=== PATIENT | male | born 1950 | race Caucasian/White ===

== ENCOUNTER 2024-08-24 11:40 | Inpatient (IN) | payer MEDICARE, OTHER, SELFPAY ==
[2024-08-24] VITALS (36 sets, daily range): BP systolic 80–117; BP diastolic 50–84; PULSE 75–144; RESP 13–30; TEMP 36.7–39.1; O2SAT 91–98; BMI 29.1
--- NOTE | 2024-08-24 11:54 | XR_ITS ---
WS: [id number] XR chest 1V portable [id number] REASON FOR EXAM: Weakness FINDINGS: No comparison examination available. Cardiac device over the left chest with trans left subclavian vein leads to the right atrium and right ventricular apex. Significant cardiomegaly. Significant central pulmonary venous congestion. There is increased density over the lower right hemithorax. There is accentuation of the minor fissure. These findings could be indicative of a right pleural effusion. No definite pulmonary edema. Significant degenerative spondylosis in the thoracic spine. XR/XR chest 1V portable [id number] IMPRESSION: Significant cardiomegaly and central pulmonary venous congestion. Possible righ t pleural effusion.
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
[2024-08-24 12:31] LABS: Hematocrit 34.5 % (37-53); Hemoglobin 10.80 g/dL (11.27-16.99); Mean Corpuscular HGB Conc 31.3 g/dL (30-55); Mean Corpuscular Hemoglobin 26.7 pg (27-33); Mean Corpuscular Volume 85.4 fl (82-101); Nucleated Red Blood Cells % 0 %; Platelet Count 306 10^3/cmm (157-399); Red Blood Count 4.04 10^6/uL (3.85-5.65); White Blood Count 19.13 10^3/uL (3.29-11.43)
[2024-08-24] MEDS: acetaminophen 1,000 MG/100 ML PIGGYBACK 400 MG IV (12:33)
[2024-08-24 12:40] LABS: INR 1.22 (0.8-1.2); Prothrombin Time 16.20 SECONDS (12.1-14.9)
[2024-08-24 12:41] LABS: Partial Thromboplastin Time 26.4 SECONDS (23.9-36.7)
[2024-08-24 12:45] LABS: Lactic Sepsis W/Reflex 1.5 mmol/L (0.5-2.2)
[2024-08-24 12:46] LABS: Troponin(5th) Baseline 97 ng/L (0-15)
--- NOTE | 2024-08-24 12:48 | PC.PHAR ---
Phoned [facility] in [place] [phone] and spoke wit pts nurse Amy. She said they gave pm medications on 08/22/24 and discharged pt to home on 08/23/24 at 7am without morning medications. Note says Discharge to home with medications on 08/23/24 Home Health to evaluate and tx for RN, PT, and OT Discharge per facility recommendation.
[2024-08-24 13:01] LABS: Alanine Aminotransferase 13 U/L (0-41); Albumin Level 2.5 g/dL (3.5-5.2); Alkaline Phosphatase 172 U/L (40-130); Aspartate Amino Transferase 18 U/L (0-40); Blood Urea Nitrogen 41 mg/dL (8-23); Calcium 8.4 mg/dL (8.5-10.5); Carbon Dioxide 18 mmol/L (22-29); Chloride 101 mmol/L (98-107); Globulin 3.2 g/dL (1.3-4.6); Glucose 121 mg/dL (65-115); NT Pro B Type Natriuretic Pept 22816 pg/mL (0-450); Osmolality Calculated 295 mOsm/kg (285-295); Sodium 137 mmol/L (136-145); Total Protein 5.7 g/dL (6.6-8.7)
[2024-08-24 13:04] LABS: Anion Gap 22.4 (5-19); Potassium 4.4 mmol/L (3.5-5.1)
--- NOTE | 2024-08-24 13:06 | CT_ITS ---
WS: [id number] CT CHEST, ABDOMEN, AND PELVIS TECHNIQUE: Noncontrast CT of the chest, abdomen, and pelvis with coronal and sagittal reformatted images. CLINICAL INFORMATION: sepsis. COMPARISON: None. DLP: 1201.[address] scans at [facility] use at least one of these dose optimization techniques: automated exposure control; mA and/or kV adjustment per patient size (includes targeted exams where dose is matched to clinical indication); or iterative reconstruction. CT CHEST: Cardiomegaly. Small to moderate RIGHT pleural effusion with compressive atelectasis RIGHT lower lobe. Shallow inspiration. Cardiac pacer. Normal caliber thoracic aorta. Aortic calcification. Coronary calcification. A few small calcified thyroid nodules. Trace pericardial fluid. Postoperative plate and screw fixation RIGHT humerus CT ABDOMEN AND PELVIS: Hepatomegaly. Cholelithiasis. No gallbladder wall thickening or pericholecystic fluid. Normal noncontrast spleen. Fatty atrophy of the pancreas. Adrenal glands are normal. Mild dilatation of the renal pelvis bilaterally with mild bilateral ureterectasis. Recommend correlation for ascending UTI/pyelonephritis. Diffuse bladder wall thickening. Bladder is decompressed with Ordaz catheter. Recommend correlation for cystitis. Adrenal glands are normal. Diffuse body wall anasarca. Diverticulosis. No evidence of acute diverticulitis. Normal appendix. Tiny fat-containing umbilical hernia. Moderate thoracic kyphosis. Hypertrophic changes thoracic spine CT/[place] [id number] IMPRESSION: 1. Small to moderate RIGHT pleural effusion with compressive atelectasis RIGHT lower lobe. 2. Cardiomegaly. 3. Diffuse body wall anasarca. 4. Ordaz catheter with diffuse bladder wall thickening. Bladder is decompresse d. Correlation for UTI cystitis. 5. Mild bilateral ureterectasis with mild pelvicaliectasis. Recommend correlat ion for UTI/pyelonephritis. 6. Cholelithiasis.
[2024-08-24] MEDS: linezolid premix 600 MG/300 ML PREMIX 300 MG IV (13:10)
[2024-08-24 13:16] LABS: Glucose Urine UA Trace (Normal); Nitrate Urine Negative (Negative); Specific Gravity, Urine 1.012 (1.005-1.030)
--- NOTE | 2024-08-24 13:54 | ECG_ITS ---
[employer] Test Date: 2024-08-24 Pat Name: Nolan Khan Department: Room: Gender: Male Process Control Tech: : 1950 Requested By: Sherrell Calderon Order Number: [id number] Ash MD: Jose Antonio Perkins M.D. Measurements Intervals [place] Rate: 79 P: 0 LA: 0 QRS: -79 QRSD: 155 T: 121 QT: 441 QTc: 507 Interpretive Statements ATRIAL FIBRILLATION RIGHT BUNDLE BRANCH BLOCK [120+ ms QRS DURATION, UPRIGHT V1, 40+ ms S IN I/aVL/V4/V5/V6] POSSIBLE ANTERIOR MYOCARDIAL INFARCTION , PROBABLY OLD [30 ms Q WAVE IN V3/V4, OR R < 0.2 mV IN V4] INFERIOR MYOCARDIAL INFARCTION , OF INDETERMINATE AGE [40+ ms Q WAVE AND/OR ST/T ABNORMALITY IN II/aVF] No previous ECG available for comparison Electronically Signed On 08-25-2024 09:30:31 CDT by Jose Antonio Perkins M.D. [email or web address]
[2024-08-24] MEDS: norepinephrine 4 MG/250 ML BAG 30 MG IV (14:38)
[2024-08-24 14:47] LABS: Troponin 5 2HR 96.99 ng/L (0-15)
[2024-08-24 14:48] LABS: Troponin 5 2HR Delta -0.01 ABS# (0-10)
--- NOTE | 2024-08-24 16:04 | USCV_ITS ---
Nolan Khan Age: 74 Gender: M : 1950 Exam Date: 08/24/2024 21:05 Ordering Phys: Pam Lobo MD Technologist: MING Exam Location: [facility] – [place] Indication: CHF, DM2, elevated troponin, RIGHT pleural effusion, patient is unresponsive in ICU-2 BP: 86 / 64 HR: 86 Rhythm: Paced rhythm with Atrial fibrillation Technical Quality: Adequate MEASUREMENTS (Male / Female) Normal Values 2D ECHO LV Diastolic Diameter PLAX 5.3 cm 4.2 - 5.9 / 3.9 - 5.3 cm IVS Diastolic Thickness 1.7 cm 0.6 - 1.0 / 0.6 - 0.9 cm IVS Systolic Thickness 1.8 cm LVPW Diastolic Thickness 1.2 cm 0.6 - 1.0 / 0.6 - 0.9 cm LVPW Systolic Thickness 1.5 cm LVOT Diameter 2.5 cm LV Ejection Fraction 2D Teich 26.6 % LV Ejection Fraction MOD 4C 28.7 % LV Ejection Fraction MOD 2C 27.6 % LV Ejection Fraction 2C AL 28.4 % LA Diameter 3.5 cm Aorta at Sinotubular Diameter 4.0 cm IVC Diameter 2.1 cm M-MODE LA Ao Ratio MM 1.3 AV Cusp Separation MM 2.1 cm DOPPLER AV Peak Velocity 139.0 cm/s LVOT Peak Velocity 81.0 cm/s AV Area Cont Eq vti 3.3 cm squared AV Area Cont Eq pk 2.7 cm squared MV Peak Velocity 94.0 cm/s MV Area PHT 5.5 cm squared Mitral E to A Ratio 69.0 TV Peak Velocity 325.0 cm/s TR Peak Velocity 328.0 cm/s TR Peak Gradient 43.0 mmHg TV Peak E Velocity 39.0 cm/s PV Peak Velocity 75.0 cm/s FINDINGS Left Ventricle Moderately increased left ventricular cavity size. Severely decreased left ventricular systolic function. Global left ventricular hypokinesis. Left ventricular ejection fraction is estimated at 25 %. There appeared to be severe global hypokinesis with regional anterior and septal wall akinesis.Grade II/IV diastolic dysfunction, moderately elevated filling pressures. Right Ventricle Moderate pulmonary hypertension, RVSP 64 mmHg. Catheter/pacemaker wire visualized in the right ventricle. Right Atrium Moderately increased right atrial size. Left Atrium Moderately increased left atrial size. Mitral Valve Structurally normal mitral valve without significant stenosis or prolapse. There is no mitral regurgitation. Aortic Valve Moderate aortic valve calcification. No aortic valve stenosis. Mild aortic valve regurgitation. Tricuspid Valve Severe tricuspid valve regurgitation. Pulmonic Valve Structurally normal pulmonic valve without significant stenosis. There is no pulmonic regurgitation. Pericardium Normal pericardium without effusion. Aorta Normal ascending aorta dimension. IVC Dilated IVC with decreased respiratory variation. CONCLUSIONS Moderately increased left ventricular cavity size. Severely decreased left ventricular systolic function. Global left ventricular hypokinesis. Left ventricular ejection fraction is estimated at 25 %. There appeared to be severe global hypokinesis with regional anterior and septal wall akinesis.Grade II/IV diastolic dysfunction, moderately elevated filling pressures. Moderate pulmonary hypertension, RVSP 64 mmHg. Catheter/pacemaker wire visualized in the right ventricle. Structurally normal mitral valve without significant stenosis or prolapse. There is no mitral regurgitation. Severe tricuspid valve regurgitation. There is no pericardial effusion. Right atrial pressure is around 25 mm of mercury. Renée Flores MD (Electronically Signed) Final Date: 26 August 2024 13:31 S
--- NOTE | 2024-08-24 16:41 | PM.HP ---
Providers/Chief Complaint Admitting Physician: Pam Lobo MD Chief Complaint: CHF,Weakness, Fatigue History of Present Illness Nolan Khan is a 74 year old male with type 2 diabetes mellitus, chronic HFrEF (30%), BPH, and GERD. He presented to the ED with generalized weakness. He reportedly was discharged from his alf either yesterday or 3 days ago. He has been out on his porch and his neighbors have been trying to take care of him. He is a former physician and . Both lower extremities were bandaged and he has drainage from his wounds. His last echocardiogram was 5 years ago. His WBC was elevated but lactic acid was normal. His BNP and troponin were elevated. UA was positive for UTI. Indwelling Ordaz catheter was placed in the ED. CT chest, abdomen, and pelvis showed small to moderate right pleural effusion with compressive atelectasis of the RLL, cardiomegaly, diffuse and a soccer, diffuse bladder wall thickening, and bilateral ureterectasis with mild pelvicaliectasis. He was febrile, tachycardic, and hypotensive in the ED. He received a total of 2 L normal saline bolus in the ED. He remained hypotensive and was started on norepinephrine. He is saturating well on room air. He was given linezolid and meropenem in the ED. Review of Systems General: Reports: 10 or more systems reviewed and unremarkable except in HPI and below Medications/Allergies Home Medications ?Medication ?Instructions ?Recorded ?Confirmed ?Last Taken ?Type Lactobacillus acidophilus 1,000 mmu cells PO DAILY 08/24/24 08/24/24 08/22/24 History (Acidophilus capsule) acetaminophen 500 mg tablet 1,000 mg PO TID pain 08/24/24 08/24/24 Unknown History aspirin 81 mg tablet,delayed 81 mg PO DAILY 08/24/24 08/24/24 08/22/24 History release (Ecotrin Low Strength) bethanechol chloride 25 mg tablet 25 mg PO QID 08/24/24 08/24/24 08/22/24 History buspirone 5 mg tablet 5 mg PO BID 08/24/24 08/24/24 08/22/24 History empagliflozin 10 mg tablet 10 mg PO QAM 08/24/24 08/24/24 08/22/24 History furosemide 20 mg tablet (Lasix) 60 mg PO BID 08/24/24 08/24/24 08/22/24 History methocarbamol 500 mg tablet 500 mg PO Q6H PRN Spasms 08/24/24 08/24/24 Unknown History midodrine 5 mg tablet 5 mg PO TID 08/24/24 08/24/24 08/22/24 History multivitamin with minerals 1 tab PO QAM 08/24/24 08/24/24 08/22/24 History naproxen sodium 220 mg tablet 220 mg PO BID PRN Pain 08/24/24 08/24/24 Unknown History pantoprazole 40 mg tablet,delayed 40 mg PO QAM 08/24/24 08/24/24 08/22/24 History release (Protonix) potassium chloride 20 mEq 20 meq PO BID 08/24/24 08/24/24 08/22/24 History tablet,extended release tamsulosin 0.4 mg capsule 0.4 mg PO QPM 08/24/24 08/24/24 08/22/24 History tramadol 50 mg tablet 50 mg PO Q6H PRN Pain 08/24/24 08/24/24 Unknown History Allergies Allergy/AdvReac Type Severity Reaction Status Date / Time Calcium Channel Blocking Allergy Unknown Verified 08/24/24 12:48 Agent Dilt phenytoin (From Dilantin) Allergy Unknown Verified 08/24/24 12:48 PFSH Acute PFSH: Medical History (Updated 08/24/24 @ 17:06 by Pam Lobo MD) Congestive heart failure (Unknown) Type 2 diabetes mellitus BPH (benign prostatic hyperplasia) Vitals/I&O/Wt Last Vital Signs Temp 100.1 F H 08/24/24 15:30 Pulse 105 H 08/24/24 15:31 Resp 16 08/24/24 14:55 BP 117/84 08/24/24 15:31 Pulse Ox 94 08/24/24 15:31 O2 Del Method Room Air 08/24/24 16:00 08/24/24 08/24/24 08/24/24 06:59 14:59 22:59 Intake Total 900 / 900 Balance 900 / 900 Weight last 48 hrs Weight 103 kg Weight 112.491 kg Physical Exam Narrative: GEN: Alert but poor appearance, anasarca HEENT, normocephalic, atraumatic, PERRLA Neck: Supple Cardio: Tachycardic, regular rhythm, S1-S2, no murmurs noted Pulmonary: Diminished breath sounds but clear Abdomen: Soft, nontender, nondistended, normal bowel sounds : No CVA tenderness, Ordaz placed in the ED Extremity: Bilateral legs and feet bandaged but noted to have venous stasis ulcers both legs, multiple toes amputated Extremity, wounds both feet with purulent drainage Data 08/24/24 12:23 08/24/24 12:23 Micro: Microbiology 08/24/24 12:56 Blood Culture - Preliminary Blood SPECIMEN COLLECTED 08/24/24 12:36 Blood Culture - Preliminary Blood SPECIMEN COLLECTED A&P Assessment and plan (1) Septic shock: Septic shock secondary to complicated UTI and infected diabetic foot ulcers Present on admission with fever, tachycardia, hypotension, leukocytosis ? Received 2 L normal saline bolus in the ED ? Started on IV pressors ? Continue linezolid and meropenem ? Follow-up blood and urine cultures (2) Acute UTI: Acute complicated UTI ? Urinary retention and Ordaz catheter placed in the ED ? Has since gross developed hematuria but initial UA did not show any significant hematuria, likely trauma from Ordaz insertion ? No urinary obstruction noted on CT ? Continue antibiotics ? Follow-up urine cultures (3) Diabetic foot ulcers: Podiatry consulted Wound care also consulted ? Continue linezolid and meropenem (4) Venous stasis ulcers of both lower extremities: Suspect he has superimposed infection Wound care consulted (5) Congestive heart failure: Acute on chronic HFrEF ? Reported LVEF 20% 5 years ago ? BNP elevated, noted to have diffuse anasarca and right pleural effusion on imaging ? Will hold off on IV diuretics given shock ? No IV fluids ? Follow-up echocardiogram ? Telemetry monitoring ? Strict I's and O's and daily weights (6) Type 2 diabetes mellitus: Holding Jardiance Sliding scale insulin Follow-up A1c (7) BPH (benign prostatic hyperplasia): Tamsulosin (8) Anasarca: Plan Continue IV antibiotics and IV pressors as above GI prophylaxis: Protonix VTE prophylaxis: Lovenox PDMP PDMP Reviewed: Not Reviewed Attestations Medical Necessity Statement*: Patient requires ICU hospitalization for IV antibiotics, IV pressors, telemetry monitoring, wound care, podiatry Critical Care Time: Total critical care time spent equals 45 minutes. Coding Level of Care Code Acute Code for Chg Fwd Diagnoses Septic shock A41.9; R65.21 Acute UTI N39.0 Diabetic foot ulcers E11.621; L97.509 Venous stasis ulcers of both lower extremities I83.019; I83.029; L97.919; L97.929 Congestive heart failure I50.9 Type 2 diabetes mellitus E11.9 BPH (benign prostatic hyperplasia) N40.0 Anasarca R60.1
--- NOTE | 2024-08-24 16:45 | XRR_ITS ---
PROCEDURE INFORMATION: Exam: XR Left Foot Exam date and time: 08/24/2024 4:56 PM Age: 74 years old Clinical indication: Other: Diabetic ulcer TECHNIQUE: Imaging protocol: Radiologic exam of the left foot. Views: 3 or more views. COMPARISON: No relevant prior studies available. FINDINGS: Bones/joints: Amputation of the 2nd digit of the level of the proximal phalanx. Mild scattered degenerative changes. No acute fracture. No dislocation. Posterior calcaneal enthesophytes. No definite osseous erosions or cortical irregularity. Soft tissues: Mild soft tissue swelling along the dorsum of the foot. Soft tissue swelling extends into the toes. XR/XR foot LT min 3V* [id number] IMPRESSION: 1. No definite radiographic evidence of osteomyelitis. 2. Soft tissue swelling along the forefoot extending into the toes. Correlate for underlying infection.
--- NOTE | 2024-08-24 16:45 | XRR_ITS ---
PROCEDURE INFORMATION: Exam: XR Right Foot Exam date and time: 08/24/2024 4:51 PM Age: 74 years old Clinical indication: Other: Diabetic ulcer TECHNIQUE: Imaging protocol: Radiologic exam of the right foot. Views: 3 or more views. COMPARISON: No relevant prior studies available. FINDINGS: Bones/joints: Amputation of the 1st digit of the level of the metatarsophalangeal joint. Limitation of the 4th digit of the base of the proximal phalanx. Mild scattered degenerative changes. Diffuse osseous demineralization. No acute fracture or dislocation. Posterior and plantar calcaneal enthesophytes. Small focus of cortical irregularity along the distal aspect of the 1st metatarsal, best appreciated on the lateral view. Soft tissues: Soft tissue swelling most pronounced along the medial aspect of the forefoot along the amputation margin. XR/XR foot RT min 3V* [id number] IMPRESSION: Soft tissue swelling most pronounced along the medial aspect of the forefoot along the amputation margin. Correlate for infection. Underlying osteomyelitis of the distal 1st metatarsal not entirely excluded. This could be further assessed with MRI if warranted.
--- NOTE | 2024-08-24 17:09 | PC.NURSE ---
Patient arrived from the ER with hematuria in the Ordaz catheter. Dr. Lau was notified and she ordered to keep watching the hematuria and possible CBI may be needed if the urine does not clear up.
--- NOTE | 2024-08-24 17:24 | PM.CONSULT ---
Providers/Reason For Consult Consulting Physician/Specialty*: Annita Cade.P.M./podiatry Reason for Consult*: Bilateral foot wounds Attending Physician: Pam Lobo MD History of Present Illness History of Present Illness Patient is a 74-year-old male who presented to the emergency department on 08/24/24 via EMS with a chief complaint of generalized weakness. Per patient and emergency physician documentation, the patient was recently [facility] from a prison and was dropped off at his home without adequate support. Neighbors attempted to care for him but were unable to manage due to the patient's increasing weakness. EMS was called, and the patient was transported to the emergency department for evaluation. Workup revealed a urinary tract infection with associated sepsis. He was also noted to have bilateral lower extremity edema, venous stasis changes, and wounds on both feet. Podiatry was consulted for evaluation and further recommendations regarding bilateral foot wounds and overall lower extremity condition. Review of Systems General: Reports: 10 or more systems reviewed and unremarkable except in HPI and below Const: Denies: fever(s), chills, body aches or change in appetite Eyes: Denies: change in vision or blurry vision Card: Denies: chest pain, palpitations or irregular heart rhythm Resp: Denies: dyspnea GI: Denies: abdominal pain, nausea, vomiting or diarrhea Musc: Reports: joint stiffness Skin/Breast: Reports: non-healing lesions and lesions Neuro: Reports: numbness in extremities Medications/Allergies Home Medications ?Medication ?Instructions ?Recorded ?Confirmed ?Last Taken ?Type Lactobacillus acidophilus 1,000 mmu cells PO DAILY 08/24/24 08/24/24 08/22/24 History (Acidophilus capsule) acetaminophen 500 mg tablet 1,000 mg PO TID pain 08/24/24 08/24/24 Unknown History aspirin 81 mg tablet,delayed 81 mg PO DAILY 08/24/24 08/24/24 08/22/24 History release (Ecotrin Low Strength) bethanechol chloride 25 mg tablet 25 mg PO QID 08/24/24 08/24/24 08/22/24 History buspirone 5 mg tablet 5 mg PO BID 08/24/24 08/24/24 08/22/24 History empagliflozin 10 mg tablet 10 mg PO QAM 08/24/24 08/24/24 08/22/24 History furosemide 20 mg tablet (Lasix) 60 mg PO BID 08/24/24 08/24/24 08/22/24 History methocarbamol 500 mg tablet 500 mg PO Q6H PRN Spasms 08/24/24 08/24/24 Unknown History midodrine 5 mg tablet 5 mg PO TID 08/24/24 08/24/24 08/22/24 History multivitamin with minerals 1 tab PO QAM 08/24/24 08/24/24 08/22/24 History naproxen sodium 220 mg tablet 220 mg PO BID PRN Pain 08/24/24 08/24/24 Unknown History pantoprazole 40 mg tablet,delayed 40 mg PO QAM 08/24/24 08/24/24 08/22/24 History release (Protonix) potassium chloride 20 mEq 20 meq PO BID 08/24/24 08/24/24 08/22/24 History tablet,extended release tamsulosin 0.4 mg capsule 0.4 mg PO QPM 08/24/24 08/24/24 08/22/24 History tramadol 50 mg tablet 50 mg PO Q6H PRN Pain 08/24/24 08/24/24 Unknown History Allergies Allergy/AdvReac Type Severity Reaction Status Date / Time Calcium Channel Blocking Allergy Unknown Verified 08/24/24 12:48 Agent Dilt phenytoin (From Dilantin) Allergy Unknown Verified 08/24/24 12:48 Current Medications Generic Name Dose Route Start Last Admin Trade Name Freq PRN Reason Stop Dose Admin Enoxaparin Sodium 40 mg 08/24/24 16:15 08/24/24 16:45 Enoxaparin 40 Mg/0.4 Ml Syringe SUBCUT 40 mg Q24H CARLEEN Administration Norepinephrine Bitartrate 4 mg in 250 mls @ 0 mls/hr 08/24/24 14:30 08/24/24 14:38 Levophed IV 8 mcg/min .Q0M CARLEEN 30 mls/hr Protocol Administration Per Protocol PFSH Acute PFSH: Medical History (Updated 08/24/24 @ 17:06 by Pam Lobo MD) Congestive heart failure (Unknown) Type 2 diabetes mellitus BPH (benign prostatic hyperplasia) Vitals/I&O/Wt Last Vital Signs Temp 100.1 F H 08/24/24 15:30 Pulse 103 H 08/24/24 17:00 Resp 17 08/24/24 17:00 BP 104/67 08/24/24 17:00 Pulse Ox 98 08/24/24 17:00 O2 Del Method Room Air 08/24/24 17:00 08/24/24 08/24/24 08/24/24 06:59 14:59 22:59 Intake Total 900 / 900 Output Total 600 / 600 Balance 900 / 900 -600 / 300 Weight last 48 hrs Weight 227 lb 1.218 oz Weight 248 lb Physical Exam Narrative: BELOW IS A FOCUSED LOWER EXTREMITY EXAM VASCULAR: DP/PT pulses palpable 2/4 with CFT intact, <3 seconds to distal digits. Bilateral lower extremities demonstrate moderate to severe pitting edema consistent with chronic venous insufficiency. DERMATOLOGICAL: Multiple superficial ulcerations noted bilaterally. Left foot with superficial wounds to the dorsal aspect of the third digit and at the dorsal aspect of the second digit amputation site. Dry, stable eschar noted at the distal lateral hallux. Right foot with two superficial ulcerations?one over the second digit and one on the dorsum of the foot. No erythema surrounding the foot wounds. Mild malodor present, attributed to poor hygiene rather than active necrosis or infection. Bilateral lower extremities show weeping venous stasis ulcerations with surrounding cellulitis. Posterior left heel is 100% granular. No active drainage no probe to bone. MUSCULOSKELETAL: Ankle joint and hindfoot range of motion within normal limits bilaterally. No tenderness with palpation of medial, lateral, or anterior ankle bilaterally. No tenderness with palpation of lateral ankle ligaments bilaterally. No pain with palpation of midfoot bilaterally. 5/5 muscle strength in all 4 quadrants of the lower extremity when tested against resistance. No gross musculoskeletal deformities noted. NEUROLOGICAL: Neurological sensation to the affected foot and ankle is present through L4-S1 dermatomes with no hyper/hypoesthesias, negative Tinel or Valleix's sign. IMAGIN-view x-rays of the bilateral feet were taken in the ICU and independently interpreted by me. Right foot reveals radiolucency with cortical resorption at the distal lateral aspect of the first metatarsal, concerning for chronic osteomyelitis. No acute osseous abnormalities or signs of acute osteomyelitis are identified. No surgical intervention warranted at this time. Left foot radiographs appear stable. Data 08/25/24 03:15 08/25/24 03:15 Micro: Microbiology 08/24/24 12:56 Blood Culture - Preliminary Blood SPECIMEN COLLECTED 08/24/24 12:36 Blood Culture - Preliminary Blood SPECIMEN COLLECTED A&P Assessment and plan (1) Diabetic foot ulcers: (2) Type 2 diabetes mellitus: (3) Edema: Plan - Bilateral diabetic foot ulceration -Labs and vitals reviewed -Diet: Per primary team -No plan for surgical intervention by podiatry during this admission -Pain Mgmt: Per primary team -Weight bearing: Weightbearing as tolerated -Dressings: Superficial ulcerations of bilateral toe wound should be painted with povidone iodine twice daily. Left heel wound should be dressed daily consisting of dry sterile dressing/Allevyn pad -Continue current Abx therapy -Trend labs -Discharge plan: To be determined -Podiatry will continue to round on patient daily and provide recommendations Defer management of venous stasis wounds to the wound care team; compression therapy is recommended bilaterally once cellulitis is controlled. There is no evidence of acute foot infection or deep space abscess. Malodor is likely secondary to poor hygiene rather than necrosis or abscess. No surgical intervention is recommended by podiatry at this time. There is no indication that the feet are the source of sepsis. PDMP PDMP Reviewed: Not Reviewed Coding Level of Care Code Acute Code for [facility] Fwd Diagnoses Diabetic foot ulcers E11.621; L97.509 Type 2 diabetes mellitus E11.9 Edema R60.9
--- NOTE | 2024-08-24 17:54 | ECG_ITS ---
[email or web address] [facility] Test Date: 2024-08-24 Pat Name: Nolan Khan Department: Room: ICU02 Gender: Male Support Service Tech: : 1950 Requested By: Sherrell Calderon Order Number: [id number] Nilsa MD: Jose Antonio Perkins M.D. Measurements Intervals [place] Rate: 116 P: 0 [place]: 0 QRS: 256 QRSD: 137 T: 98 QT: 347 QTc: 483 Interpretive Statements ATRIAL FIBRILLATION WITH RAPID VENTRICULAR RESPONSE WITH ABERRANT CONDUCTION OR VENTRICULAR PREMATURE COMPLEXES RIGHT AXIS DEVIATION [QRS AXIS > 100] RIGHT BUNDLE BRANCH BLOCK [120+ ms QRS DURATION, UPRIGHT V1, 40+ ms S IN I/aVL/V4/V5/V6] INFERIOR MYOCARDIAL INFARCTION , POSSIBLY ACUTE [40+ ms Q WAVE AND/OR ST/T ABNORMALITY IN II/aVF] ANTEROSEPTAL MYOCARDIAL INFARCTION , OF INDETERMINATE AGE [40+ ms Q WAVE IN V1-V4] No previous ECG available for comparison Electronically Signed On 08-25-2024 09:31:01 CDT by Jose Antonio Perkins M.D. [id number]
[2024-08-24] MEDS: morphine 4 mg/mL SDV 1 mL IVP (18:05)
--- NOTE | 2024-08-24 18:20 | ECG_ITS ---
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 Measurements Intervals [place] Rate: 147 P: 0 [place]: 0 QRS: 270 QRSD: 165 T: 87 QT: 337 QTc: 528 Interpretive Statements ATRIAL FIBRILLATION WITH RAPID VENTRICULAR RESPONSE WITH ABERRANT CONDUCTION OR VENTRICULAR PREMATURE COMPLEXES RIGHT AXIS DEVIATION [QRS AXIS > 100] RIGHT BUNDLE BRANCH BLOCK [120+ ms QRS DURATION, UPRIGHT V1, 40+ ms S IN I/aVL/V4/V5/V6] POSSIBLE ANTERIOR MYOCARDIAL INFARCTION , OF INDETERMINATE AGE [30 ms Q WAVE IN V3/V4, OR R < 0.2 mV IN V4] Compared to ECG 08/24/2024 14:31:31 Ventricular premature complex(es) now present Aberrant conduction of supraventricular beat(s) now present Right-axis deviation now present Myocardial infarct finding still present Electronically Signed On 08-25-2024 08:53:32 CDT by Jose Antonio Perkins M.D. [id number] [id number]
--- NOTE | 2024-08-24 18:32 | PC.NURSE ---
Patient's heart rate jumped up to 160. EKG was done and it showed patient being in A-fib with RVR. Dr. Lobo was notified and she ordered to give first 5 mg of metoprolo IVP push then if that does not work maybe starting him on an amio drip.
[2024-08-24] MEDS: metoprolol tartrate 1 mg/1 mL SDV 5 mL 5 MG IVP (18:36)
[2024-08-24 18:41] LABS: Troponin 5 6HR 96.12 ng/L (0-15)
[2024-08-24 18:54] LABS: Troponin 5 6HR Delta -0.88 ng/L (0-12)
[2024-08-24] MEDS: meropenem 1,000 mg SDV 1000 MG IVP (20:29)
[2024-08-24 20:31] LABS: Free T4 Free Thyroxine 1.30 ng/dL (0.82-1.77); Thyroid Stimulating Hormone 0.60 uIU/mL (0.27-4.20)
[2024-08-25] VITALS (98 sets, daily range): BP systolic 80–120; BP diastolic 46–85; PULSE 75–141; RESP 13–27; TEMP 36.8–37.6; O2SAT 89–96
[2024-08-25] MEDS: norepinephrine 4 MG/250 ML BAG 30 MG IV ×2 (00:18→09:05)
[2024-08-25] MEDS: linezolid premix 600 MG/300 ML PREMIX 300 MG IV ×3 (00:20→18:30)
[2024-08-25 03:13] LABS: Bacteroides fragilis Not Detected (NOT DETECT); CTX-M Detected (NOT DETECT); Citrobacter Not Detected (NOT DETECT); Cronobacter sakazakii Not Detected (NOT DETECT); Enterobacter non cloacae Not Detected (NOT DETECT); Fusobacterium necrophorum Not Detected (NOT DETECT); Fusobacterium nucleatum Not Detected (NOT DETECT); IMP Resistance Gene Not Detected (NOT DETECT); KPC Resistance Gene Not Detected (NOT DETECT); Klebsiella pneumoniae group Not Detected (NOT DETECT); Morganella morganii Not Detected (NOT DETECT); NDM Resistance Gene Not Detected (NOT DETECT); OXA Resistance Gene Not Detected (NOT DETECT); Pan Candida Not Detected (NOT DETECT); Pan Gram-Positive Not Detected (NOT DETECT); Proteus mirabilis Not Detected (NOT DETECT); Serratia Not Detected (NOT DETECT); Serratia marcescens Not Detected (NOT DETECT); Stenotrophomonas maltophilia Not Detected (NOT DETECT); VIM Resistance Gene Not Detected (NOT DETECT)
[2024-08-25 03:50] LABS: Hematocrit 33.6 % (37-53); Hemoglobin 10.40 g/dL (11.27-16.99); Mean Corpuscular HGB Conc 31.0 g/dL (30-55); Mean Corpuscular Hemoglobin 26.6 pg (27-33); Mean Corpuscular Volume 85.9 fl (82-101); Nucleated Red Blood Cells % 0 %; Platelet Count 315 10^3/cmm (157-399); Red Blood Count 3.91 10^6/uL (3.85-5.65); White Blood Count 23.37 10^3/uL (3.29-11.43)
--- NOTE | 2024-08-25 03:51 | PC.NURSE ---
Blood Culture Preliminary Results Blood culture preliminary results 3/3 bottles positive for gram negative rods, E. Coli, with resistance gene ctx-m. Dr. Smith notified; orders received to discontinue meropenem and zyvox then start 2 g ceftriaxone IV now and Q24H.
[2024-08-25] MEDS: cefTRIAXone 1,000 mg SDV 2000 MG IVP (04:04)
[2024-08-25 04:22] LABS: Magnesium 2.4 mg/dL (1.7-2.3)
[2024-08-25 04:23] LABS: Anion Gap 18.0 (5-19); Blood Urea Nitrogen 40 mg/dL (8-23); Calcium 8.5 mg/dL (8.5-10.5); Carbon Dioxide 22 mmol/L (22-29); Chloride 102 mmol/L (98-107); Creatinine Clr Calc Pharmacy 50.2889; Glucose 133 mg/dL (65-115); Osmolality Calculated 298 mOsm/kg (285-295); Potassium 4.0 mmol/L (3.5-5.1); Sodium 138 mmol/L (136-145)
--- NOTE | 2024-08-25 07:31 | P.PN_ITS ---
Subjective 2 Subjective: He went into A-fib with RVR yesterday evening. His rate was controlled with IV metoprolol. His rate remained controlled overnight. He is still on Levophed. He has pain in his legs and feels generally uncomfortable. Denies any dyspnea at this time. He is on room air. He had gross hematuria after Ordaz insertion yesterday. Hematuria is clearing up. Vitals/I&O/Wt Last Vital Signs Temp 99.1 F 08/25/24 04:00 Pulse 102 H 08/25/24 07:00 Resp 14 08/25/24 07:00 BP 108/60 08/25/24 07:00 Pulse Ox 95 08/25/24 07:00 O2 Del Method Room Air 08/25/24 04:00 08/24/24 08/25/24 08/25/24 22:59 06:59 14:59 Intake Total 250 / 1150 700 / 1850 Output Total 600 / 600 850 / 1450 Balance -350 / 550 -150 / 400 Weight last 48 hrs Weight 101.5 kg Weight 103 kg Weight 112.491 kg Physical Exam 2 Narrative: GEN: Alert but poor appearance, anasarca HEENT, normocephalic, atraumatic, PERRLA Neck: Supple Cardio: Regular rate, irregular rhythm, S1-S2, no murmurs noted Pulmonary: Diminished breath sounds especially in the bases Abdomen: Soft, nontender, nondistended, normal bowel sounds : No CVA tenderness, Ordaz placed in the ED Extremity: Edema of both legs. Status post right great and fourth toe amputations. Status post amputation of the left second toe. Skin: Venous stasis ulcers both extremities with erythema. Superficial ulcer left third toe and stump of amputated left second toe. Ulcer left posterior heel with granular tissue at base. Right foot with superficial ulcer on the right second toe and also in dorsum of the right foot. Urinary Catheter Management: Ordaz: Cath Placed During This Visit: no Reason for Continuing Indwelling Catheter: Accurate Measurement of Urinary Output in Critically Ill Patients Data 08/25/24 03:15 08/25/24 03:15 Micro: Microbiology 08/24/24 12:36 Blood Culture - Preliminary Blood Escherichia coli 08/24/24 12:56 Blood Culture - Preliminary Blood SPECIMEN COLLECTED A&P Assessment and plan (1) Shock: Likely component of septic and cardiogenic shock ? Hypervolemic on exam ? Continues to require Levophed ? Started Lasix today as well ? Monitor blood pressure closely; goal MAP greater than 65 mmHg ? Telemetry monitoring (2) Septic shock: Septic shock secondary to complicated UTI and likely superimposed cellulitis of both legs Present on admission with fever, tachycardia, hypotension, leukocytosis ? Received 2 L normal saline bolus in the ED ? Continues to require IV pressors ? Continue linezolid and meropenem ? Follow-up blood and urine cultures (3) Acute UTI: Acute complicated UTI ? Ordaz catheter placed in the ED for urinary retention ? No urinary obstruction noted on CT ? Continue antibiotics ? Follow-up urine cultures (4) Diabetic foot ulcers: Diabetic foot ulcers both feet Podiatry consulted and did not think that his wounds were acutely infected Wound care following (5) Venous stasis ulcers of both lower extremities: Likely had some degree of superimposed cellulitis Continue wound care per wound care recommendations IV antibiotics as above (6) Congestive heart failure: Acute on chronic HFrEF ? Reported LVEF 30% 5 years ago ? BNP elevated, noted to have diffuse anasarca and right pleural effusion on imaging ? started lasix drip this morning ? Follow-up echocardiogram ? Telemetry monitoring ? Strict I's and O's and daily weights (7) Type 2 diabetes mellitus: Holding Jardiance Sliding scale insulin Follow-up A1c (8) BPH (benign prostatic hyperplasia): Tamsulosin (9) Anasarca: (10) Atrial fibrillation with RVR: He was in RVR yesterday. Rate controlled with metoprolol. Will start oral metoprolol. Telemetry monitoring. (11) Gross hematuria: Developed gross hematuria after Ordaz insertion. No hematuria on initial UA. Hematuria is improving. Hemoglobin has been stable. Plan Continue IV antibiotics and IV pressors as above. Also started lasix drip GI prophylaxis: Protonix VTE prophylaxis: Lovenox PDMP PDMP Reviewed: Not Reviewed Attestations 2 Medical Necessity Statement*: Patient requires continued hospitalization in the ICU for IV antibiotics, IV pressors, diuretics, and wound care. Critical Care Time: Total critical care time spent equals 40 minutes. Coding Level of Care Code Critical Care >/= 30 minutes Diagnoses Shock R57.9 Septic shock A41.9; R65.21 Acute UTI N39.0 Diabetic foot ulcers E11.621; L97.509 Diabetes mellitus type: type 2 Laterality: unspecified laterality Venous stasis ulcers of both lower extremities I83.019; I83.029; L97.919; L97.929 Congestive heart failure I50.9 Type 2 diabetes mellitus E11.9 BPH (benign prostatic hyperplasia) N40.0 Anasarca R60.1 Atrial fibrillation with RVR I48.91 Gross hematuria R31.0
--- NOTE | 2024-08-25 08:11 | P.CONIM_ITS ---
<Statement entered by Sid Vallecillo MD - 08/25/24 11:39> I have reviewed the documentation and plan of care and agree with the assessment and plan of care as written. Dr. Sid Vallecillo Providers/Reason For Consult 2 Consulting Physician/Specialty*: Wound care Reason for Consult*: Venous ulcers to bilateral lower extremities Requesting Physician: Dr. Lobo Attending Physician: Pam Lobo MD History of Present Illness History of Present Illness Nolan Khan is a 74 year old male with a past medical history that includes type 2 diabetes, congestive heart failure, GERD, and BPH. He presented to [facility] emergency department via EMS due to generalized weakness. Apparently he had been discharged from a shelter 2 days prior and had inadequate home support. He was admitted to [facility] on August 24 due to sepsis related to UTI. He was noted to have multiple diabetic foot ulcers as well as venous stasis ulcers to his bilateral lower extremities. Podiatry was consulted to manage the open diabetic foot ulcers. Wound care has been consulted to provide recommendations for the bilateral lower extremity open ulcerations. Review of Systems 2 General: Reports: 10 or more systems reviewed and unremarkable except in HPI and below Const: Denies: fever(s) or chills Musc: Reports: extremity swelling Skin/Breast: Reports: sores (To legs and feet) Medications/Allergies Home Medications ?Medication ?Instructions ?Recorded ?Confirmed ?Last Taken ?Type Lactobacillus acidophilus 1,000 mmu cells PO DAILY 04/1908/24/24 08/22/24 History (Acidophilus capsule) acetaminophen 500 mg tablet 1,000 mg PO TID pain 08/2408/24/24 Unknown History aspirin 81 mg tablet,delayed 81 mg PO DAILY 08/24/24 0 08/24/24 08/22/24 History release (Ecotrin Low Strength) bethanechol chloride 25 mg tablet 25 mg PO QID 5 08/24/24 08/22/24 History buspirone 5 mg tablet 5 mg PO BID 08/24/24 5 08/22/24 History empagliflozin 10 mg tablet 10 mg PO QAM 08/24/2408/2408/22/24 History furosemide 20 mg tablet (Lasix) 60 mg PO BID 08/24/24 08/24/24 08/22/24 History methocarbamol 500 mg tablet 500 mg PO Q6H PRN Spasms 0 08/24/24 08/24/24 Unknown History midodrine 5 mg tablet 5 mg PO TID 08/24/24 5 08/22/24 History multivitamin with minerals 1 tab PO QAM 08/24/2408/2408/22/24 History naproxen sodium 220 mg tablet 220 mg PO BID PRN Pain 0 08/24/24 08/24/24 Unknown History pantoprazole 40 mg tablet,delayed 40 mg PO QAM 5 08/24/24 08/22/24 History release (Protonix) potassium chloride 20 mEq 20 meq PO BID 08/24/2408/2408/22/24 History tablet,extended release tamsulosin 0.4 mg capsule 0.4 mg PO QPM 08/24/2408/2408/22/24 History tramadol 50 mg tablet 50 mg PO Q6H PRN Pain 08/24/24 Unknown History Allergies Allergy/AdvReac Type Severity Reaction Status Date / Time Calcium Channel Blocking Allergy Unknown Verified 08/24/24 12:48 Agent Dilt phenytoin (From Dilantin) Allergy Unknown Verified 08/24/24 12:48 Current Medications Generic Name Dose Route Start Last Admin Trade Name Freq PRN Reason Stop Dose Admin Buspirone HCl 5 mg 08/24/24 18:00 08/25/24 04:05 Buspirone 10 Mg Tablet PO 5 mg BID@0500,1700 CARLEEN Administration Enoxaparin Sodium 40 mg 08/24/24 16:15 08/24/24 16:45 Enoxaparin 40 Mg/0.4 Ml Syringe SUBCUT 40 mg Q24H CARLEEN Administration Norepinephrine Bitartrate 4 mg in 250 mls @ 0 mls/hr 08/24/24 14:30 08/25/24 00:18 Levophed IV 8 mcg/min .Q0M CARLEEN 30 mls/hr Protocol Administration Per Protocol Insulin Human Lispro 0 unit 08/24/24 18:00 08/25/24 07:27 Insulin Lispro 100 Unit/1 Ml SUBCUT Not Given [facility] Protocol Midodrine 5 mg 08/24/24 21:00 08/24/24 21:42 Midodrine 5 Mg Tablet PO 5 mg TID CARLEEN Administration Morphine Sulfate 4 mg 08/24/24 16:04 08/24/24 18:05 Morphine 4 Mg/Ml Sdv 1 Ml IVP 4 mg Q4H PRN Administration SEVERE PAIN Tamsulosin HCl 0.4 mg 08/24/24 18:00 08/24/24 17:59 Tamsulosin 0.4 Mg Capsule PO 0.4 mg QPM CARLEEN Administration PFSH Acute 2 PFSH: Medical History Congestive heart failure (Unknown) Type 2 diabetes mellitus BPH (benign prostatic hyperplasia) Vitals/I&O/Wt Last Vital Signs Temp 99.1 F 08/25/24 04:00 Pulse 102 H 08/25/24 07:00 Resp 14 08/25/24 07:00 BP 108/60 08/25/24 07:00 Pulse Ox 95 08/25/24 07:00 O2 Del Method Room Air 08/25/24 04:00 08/24/24 08/25/24 08/25/24 22:59 06:59 14:59 Intake Total 250 / 1150 700 / 1850 Output Total 600 / 600 850 / 1450 Balance -350 / 550 -150 / 400 Weight last 48 hrs Weight 101.5 kg Weight 103 kg Weight 112.491 kg Physical Exam 2 Const: COMMON NORMALS: no acute distress and alert GENERAL APPEARANCE: c ooperative and ill appearing ORIENTATION/CONSCIOUSNESS: Yes awake HENMT: HEAD & SCALP: normal to inspection Eye: GENERAL EYE: appearance normal, both eyes and all related structures Neck/C-Spine: GENERAL: Yes normal visual inspection Chest: CHEST: Yes Symmetrical chest wall rise Resp: COMMON NORMALS: normal respiratory effort EFFORT & INSPECTION: Yes able to speak in complete sentences Cardio: RATE: tachycardic PERIPHERAL PULSES: dorsalis pedis present positive bilateral Extremity: GENERAL: Yes edema Neuro: SENSORIUM/ORIENTATION: Yes alert Skin: WOUNDS: Yes wounds noted (See wound assessment) Data 08/25/24 03:15 08/25/24 03:15 Micro: Microbiology 08/24/24 12:36 Blood Culture - Preliminary Blood Escherichia coli 08/24/24 12:56 Blood Culture - Preliminary Blood SPECIMEN COLLECTED A&P Assessment and plan (1) Venous stasis ulcers of both lower extremities: (2) Type 2 diabetes mellitus with other skin ulcer: Plan Scattered superficial ulcerations to bilateral lower extremities without signs or symptoms of active infection. Will recommend silvercel to open wounds with ABD pad for moisture control. This should be changed daily and as needed if soiled or dislodged. Bilateral lower extremities are edematous. Palpable dorsalis pedis pulses. Less than 3-second capillary refill in distal digits of bilateral feet. Will recommend Tubigrip single-layer and leg elevation. Due to patient's inability to care for himself at home, it may be beneficial to discuss nursing home facility placement upon discharge as he will need ongoing wound care. Wound care will sign off for now. If patient is still admitted Thursday, will see him at that time. Further wound care recommendations should be guided by hospitalist service. Patient will need wound care outpatient to decrease the risk of complications such as infection and decline after discharge. PDMP PDMP Reviewed: Not Reviewed Consult Attestations 2 Time Spent in Patient Care: 16 - 35 minutes Coding Level of Care Code Acute Code for Chg Fwd Diagnoses Venous stasis ulcers of both lower extremities I83.019; I83.029; L97.919; L97.929 Type 2 diabetes mellitus with other skin ulcer E11.622; L98.499 Wound Assessment Wound Assessment Wound Number 1 Lower Leg: Cluster Wound: Yes Descriptor: Right, Anterior and Inferior Primary Etiology: Venous Ulcer Secondary Etiology: Diabetic Would/Ulcer of the Lower Extremity Length (cm): 4.5 cm Width (cm): 4 cm Depth (cm): 0.1 cm Epithelialization: None Tunneling: No Undermining: No Limited to Skin Breakdown: Yes Exudate Amount: Medium Drainage Type: Serosanguineous Foul Odor After Cleansing: No Slough/Fibrin?: No Granulation Amount: Small (1-33%) Granulation Quality: Ramah Necrotic Amount: Small (1-33%) Necrotic Type: Adherent Slough Wound Number 2 Lower Leg: Cluster Wound: Yes Descriptor: Right, Anterior and Superior Primary Etiology: Venous Ulcer Secondary Etiology: Diabetic Would/Ulcer of the Lower Extremity Length (cm): 7 cm Width (cm): 5 cm Depth (cm): 0.1 cm Epithelialization: None Tunneling: No Undermining: No Limited to Skin Breakdown: Yes Exudate Amount: Medium Drainage Type: Serosanguineous Foul Odor After Cleansing: No Slough/Fibrin?: Yes Granulation Amount: Small (1-33%) Granulation Quality: Ramah and Pale Necrotic Amount: Small (1-33%) Necrotic Type: Adherent Slough Wound Number 3 Lower Leg: Cluster Wound: Yes Descriptor: Right and Posterior Primary Etiology: Venous Ulcer Secondary Etiology: Diabetic Would/Ulcer of the Lower Extremity Length (cm): 7 cm Width (cm): 2.5 cm Depth (cm): 0.1 cm Epithelialization: None Tunneling: No Undermining: No Limited to Skin Breakdown: Yes Exudate Amount: Medium Drainage Type: Serosanguineous Foul Odor After Cleansing: No Slough/Fibrin?: Yes Granulation Amount: Small (1-33%) Granulation Quality: Ramah Necrotic Amount: Medium (34-66%) Necrotic Type: Adherent Slough Wound Number 4 Lower Leg: Cluster Wound: Yes Descriptor: Left and Anterior Primary Etiology: Venous Ulcer Secondary Etiology: Diabetic Would/Ulcer of the Lower Extremity Length (cm): 0.8 cm Width (cm): 1 cm Depth (cm): 0.1 cm Epithelialization: None Tunneling: No Undermining: No Limited to Skin Breakdown: No Exudate Amount: Medium Drainage Type: Serosanguineous Foul Odor After Cleansing: No Slough/Fibrin?: Yes Granulation Amount: Small (1-33%) Granulation Quality: Ramah Necrotic Amount: Medium (34-66%) Necrotic Type: Adherent Slough Wound Number 5 Lower Leg: Cluster Wound: Yes Descriptor: Left and Posterior Primary Etiology: Venous Ulcer Secondary Etiology: Diabetic Would/Ulcer of the Lower Extremity Length (cm): 11 cm Width (cm): 7 cm Depth (cm): 0.1 cm Epithelialization: None Tunneling: No Undermining: No Limited to Skin Breakdown: Yes Exudate Amount: Medium Drainage Type: Serosanguineous Foul Odor After Cleansing: No Slough/Fibrin?: Yes Granulation Amount: None Necrotic Amount: Medium (34-66%) Necrotic Type: Adherent Slough Wound Orders All Wounds: Venous ulcers to bilateral lower extremities-see podiatry orders for foot ulcers Dressing change frequency: Daily and Other (As needed if soiled or dislodged) Wound Cleansing: Saline Primary Wound Care Dressing: Silvercel Secondary Wound Care Dressing: ABD pad, Kerlix Edema Control: Elevate legs to heart level for 30 mins daily and/or when sitting and Tubigrip single layer
[2024-08-25] MEDS: albumin 25 G/100 ML BAG 60 G IV ×3 (08:41→18:31)
[2024-08-25] MEDS: MEROPENEM 2,000 MG in sodium chloride 0.9% (plus) 50 ML 100 MG IV ×2 (08:41→15:18)
[2024-08-25] MEDS: FUROsemide 200 MG in sodium chloride 0.9% (100 ml) 80 ML IV (15:42)
--- NOTE | 2024-08-25 19:36 | PC.NURSE ---
Metoprolol, labs 25 mg metoprolol ordered PO BID. Patient currently on levophed at 6 mcg/min; Dr. Smith contacted and order received to hold tonight's dose of metoprolol. Patient additionally on lasix drip. Last known potassium level 4.0 at 0315 this AM. Q4H BMP as well as a current BMP discussed; no new BMP order received. New order received to check magnesium and phosphorous level with AM labs.
[2024-08-25] MEDS: norepinephrine 4 MG/250 ML BAG 22.5 MG IV (19:56)
[2024-08-26] VITALS (96 sets, daily range): BP systolic 77–114; BP diastolic 44–71; PULSE 70–98; RESP 13–38; TEMP 36.4–37.8; O2SAT 80–100
[2024-08-26] MEDS: MEROPENEM 2,000 MG in sodium chloride 0.9% (plus) 50 ML 100 MG IV ×4 (00:19→23:59)
[2024-08-26 03:37] LABS: Hematocrit 29.4 % (37-53); Hemoglobin 9.30 g/dL (11.27-16.99); Mean Corpuscular HGB Conc 31.6 g/dL (30-55); Mean Corpuscular Hemoglobin 26.7 pg (27-33); Mean Corpuscular Volume 84.5 fl (82-101); Nucleated Red Blood Cells % 0 %; Platelet Count 308 10^3/cmm (157-399); Red Blood Count 3.48 10^6/uL (3.85-5.65); White Blood Count 12.65 10^3/uL (3.29-11.43)
[2024-08-26 04:07] LABS: Anion Gap 15.8 (5-19); Blood Urea Nitrogen 43 mg/dL (8-23); Calcium 8.2 mg/dL (8.5-10.5); Carbon Dioxide 24 mmol/L (22-29); Chloride 101 mmol/L (98-107); Creatinine Clr Calc Pharmacy 61.4838; Glucose 134 mg/dL (65-115); Osmolality Calculated 299 mOsm/kg (285-295); Sodium 138 mmol/L (136-145)
[2024-08-26 04:10] LABS: Magnesium 2.2 mg/dL (1.7-2.3)
[2024-08-26 04:28] LABS: Potassium 2.8 mmol/L (3.5-5.1)
--- NOTE | 2024-08-26 04:36 | PC.NURSE ---
Potassium Dr. Smith notified of patient's critical potassium level. Orders received for 20 meq PO potassium once as well as 40 meq IV potassium total. 2 hours following completion of IV potassium, recheck potassium level.
[2024-08-26] MEDS: potassium chloride oral liq 20 mEq/15 mL UDC PO (05:01)
[2024-08-26] MEDS: potassium chloride premix 100 ML 50 MEQ IV (05:02)
[2024-08-26] MEDS: linezolid premix 600 MG/300 ML PREMIX 300 MG IV (06:30)
[2024-08-26] MEDS: lidocaine 1% 5 ML in potassium chloride premix 100 ML 52.5 ML IV (07:11)
[2024-08-26] MEDS: norepinephrine 4 MG/250 ML BAG 22.5 MG IV (07:46)
--- NOTE | 2024-08-26 07:55 | P.PN_ITS ---
Subjective 2 Subjective: He is doing fine today. He thinks that his legs are improving. He denies any dyspnea. He is unable to lift his right arm above his shoulder due to the prior humerus fracture. His pain is well-controlled. Medications: Reviewed: Yes Vitals/I&O/Wt Last Vital Signs Temp 97.6 F 08/26/24 04:45 Pulse 82 08/26/24 06:30 Resp 26 H 08/26/24 06:30 BP 91/57 08/26/24 06:30 Pulse Ox 97 08/26/24 06:30 O2 Del Method Room Air 08/26/24 04:45 08/25/24 08/26/24 08/26/24 22:59 06:59 14:59 Intake Total 680.50 / 1740.00 530.25 / 2270.25 304.75 / 304.75 Output Total 2400 / 3300 2975 / 6275 Balance -1719.50 / -1560.00 -2444.75 / -4004.75 304.75 / 304.75 Weight last 48 hrs Weight 99.5 kg Weight 101.5 kg Weight 103 kg Weight 112.491 kg Physical Exam 2 Narrative: GEN: Alert but poor appearance, anasarca HEENT, normocephalic, atraumatic, PERRLA Neck: Supple Cardio: Regular rate, irregular rhythm, S1-S2, no murmurs noted Pulmonary: Diminished breath sounds especially in the bases Abdomen: Soft, nontender, nondistended, normal bowel sounds : No CVA tenderness, Ordaz placed in the ED Extremity: 2+ edema of both legs. Status post right great and fourth toe amputations. Status post amputation of the left second toe. Skin: Venous stasis ulcers both extremities with erythema. Superficial ulcer left third toe and stump of amputated left second toe. Ulcer left posterior heel with granular tissue at base. Right foot with superficial ulcer on the right second toe and also in dorsum of the right foot. Urinary Catheter Management: Ordaz: Cath Placed During This Visit: yes Reason for Continuing Indwelling Catheter: Accurate Measurement of Urinary Output in Critically Ill Patients Urinary Catheter Date of Insertion: 08/24/24 Urinary Catheter Time of Insertion: 12:00 Data 08/26/24 03:05 08/26/24 03:05 Micro: Microbiology 08/24/24 12:56 Blood Culture - Preliminary Blood NEGATIVE TO DATE 08/24/24 13:02 Urine Culture - Preliminary Urine,Clean Catch Gram Negative Rods 08/24/24 12:36 Blood Culture - Preliminary Blood Escherichia coli A&P Assessment and plan (1) Shock: Likely component of septic and cardiogenic shock ? Hypervolemic on exam ? He is still on Levophed, titrate as tolerated ? Goal MAP greater than 65 mmHg ? Also on a Lasix drip ? Telemetry monitoring (2) Septic shock: Septic shock secondary to complicated UTI and likely superimposed cellulitis of both legs Present on admission with fever, tachycardia, hypotension, leukocytosis ? Received 2 L normal saline bolus in the ED and required IV pressors ? Continue meropenem (08/24? ); discontinued linezolid today ? Follow-up blood and urine cultures (3) Acute UTI: Acute complicated UTI ? Ordaz catheter placed in the ED for urinary retention ? No urinary obstruction noted on CT ? Urine culture growing GNR, follow-up final results ? 1 out of 2 blood cultures from 08/24 growing E. coli, likely seeded from urine ? Continue antibiotics as above ? Follow-up urine and blood cultures (4) Diabetic foot ulcers: Diabetic foot ulcers both feet Podiatry consulted and did not think that his wounds were acutely infected Wound care following (5) Venous stasis ulcers of both lower extremities: May some degree of superimposed cellulitis Continue wound care per wound care recommendations IV antibiotics as above (6) Congestive heart failure: Acute on chronic HFrEF ? Reported LVEF 30% 5 years ago ? BNP elevated, noted to have diffuse anasarca and right pleural effusion on imaging ? Continue Lasix drip ? Follow-up echocardiogram report ? Continue metoprolol ? Telemetry monitoring ? Strict I's and O's and daily weights, daily fluid restriction 1800 ? Cardiology consulted (7) Type 2 diabetes mellitus: Restarted Jardiance Sliding scale insulin Follow-up A1c (8) BPH (benign prostatic hyperplasia): Tamsulosin (9) Anasarca: (10) Atrial fibrillation with RVR: Unspecified atrial fibrillation In a RVR 08/25 but now rate controlled on oral metoprolol Not on oral anticoagulation He was in RVR yesterday. Rate controlled with metoprolol. Will start oral metoprolol. Telemetry monitoring. (11) Gross hematuria: Traumatic, developed gross hematuria after Ordaz insertion. No hematuria on initial UA. Hematuria has cleared. (12) Elevated serum creatinine: Baseline serum creatinine unknown. Creatinine 1.5 on admission, increased to 1.6 and down to 1.3 today. He reported history of acute renal failure. He may have underlying CKD. Monitor renal function given on Lasix. Plan Continue IV antibiotics. On Lasix and Levophed drips. GI prophylaxis: Protonix VTE prophylaxis: Lovenox PDMP PDMP Reviewed: Not Reviewed Attestations 2 Medical Necessity Statement*: Patient requires continued ICU hospitalization for IV pressors, IV diuresis, IV antibiotics, and telemetry monitoring. Critical Care Time: Total critical care time spent equals 40 minutes. Coding Level of Care Code Critical Care >/= 30 minutes Diagnoses Shock R57.9 Septic shock A41.9; R65.21 Acute UTI N39.0 Diabetic foot ulcers E11.621; L97.509 Diabetes mellitus type: type 2 Laterality: unspecified laterality Venous stasis ulcers of both lower extremities I83.019; I83.029; L97.919; L97.929 Congestive heart failure I50.9 Type 2 diabetes mellitus E11.9 BPH (benign prostatic hyperplasia) N40.0 Anasarca R60.1 Atrial fibrillation with RVR I48.91 Gross hematuria R31.0 Elevated serum creatinine R79.89
--- NOTE | 2024-08-26 08:23 | PC.SOCIAL ---
IMM Update Pg. 2 of IMM Updated and copy provided at bedside.
[2024-08-26 11:18] LABS: Anion Gap 17.9 (5-19); Blood Urea Nitrogen 41 mg/dL (8-23); Calcium 7.9 mg/dL (8.5-10.5); Carbon Dioxide 22 mmol/L (22-29); Chloride 100 mmol/L (98-107); Creatinine Clr Calc Pharmacy 66.0148; Glucose 135 mg/dL (65-115); Osmolality Calculated 292 mOsm/kg (285-295); Potassium 4.9 mmol/L (3.5-5.1); Sodium 135 mmol/L (136-145)
[2024-08-26] MEDS: albumin 25 G/100 ML BAG 60 G IV (12:25)
--- NOTE | 2024-08-26 12:36 | PC.NURSE ---
Patient is receiving Levophed and will require central access, however, patient refuses a central line and access nurse for PICC placement is not available until thursday. Risks of extravasation due to levophed have been explained to the patient, but he still refuses. Patient remains on levophed through a peripheral line. Metoprolol discontinued and albumin administered in an attempt to reduce dependency on levophed. Nursing is frequently assessing peripheral access.
--- NOTE | 2024-08-26 12:42 | PM.CONSULT ---
Providers/Reason For Consult Consulting Physician/Specialty*: Dr. Lobo Reason for Consult*: Persistent hypotension Nonischemic cardiomyopathy Severely depressed left ventricular ejection fraction Urosepsis Generalized anasarca with lower extremity edema Chronic venous insufficiency Bilateral lower extremity persistent edema Attending Physician: Pam Lobo MD History of Present Illness History of Present Illness Nolan Khan is a 74 year old male past medical history significant for nonischemic cardiomyopathy noted to have severely depressed left ventricular ejection fraction who left AGAINST MEDICAL ADVICE from half-way and admitted with urosepsis he was also noted to be short of breath and with over loaded volume status. Patient was effectively diuresed renal function improvement, however patient continues to have low blood pressure requiring IV pressor. Currently he is mentating fine denies any chest pain, he thinks shortness of breath better he is without oxygen. He has 3-4+ edema in bilateral lower extremity with staining suggestive of chronic venous insufficiency. Echocardiogram is consistent with severely depressed ejection fraction of 25% which has not changed much, he was also noted to have moderate to severe pulmonary hypertension with right systolic ventricular pressure around 60 mmHg and high right-sided filling pressure most likely secondary to pulmonary hypertension and left-sided heart failure. There was also severe tricuspid valve regurgitation. Review of Systems General: Reports: 10 or more systems reviewed and unremarkable except in HPI and below Narrative: Constitutional symptoms: Negative except as documented in HPI. Skin symptoms: Negative except as documented in HPI. Eye symptoms: Negative except as documented in HPI. ENMT symptoms: Negative except as documented in HPI. Respiratory symptoms: Negative except as documented in HPI. Cardiovascular symptoms: Negative except as documented in HPI. Gastrointestinal symptoms: Negative except as documented in HPI. Genitourinary symptoms: Negative except as documented in HPI. Musculoskeletal symptoms: Negative except as documented in HPI. Neurologic symptoms: Negative except as documented in HPI. Psychiatric symptoms: Negative except as documented in HPI. Endocrine symptoms: Negative except as documented in HPI. Const: Denies: fever(s), chills, body aches or change in appetite Eyes: Denies: change in vision or blurry vision Card: Denies: chest pain, palpitations or irregular heart rhythm Resp: Denies: dyspnea GI: Denies: abdominal pain, nausea, vomiting or diarrhea Musc: Reports: extremity swelling and joint stiffness Skin/Breast: Reports: sores (To legs and feet), non-healing lesions and lesions Neuro: Reports: numbness in extremities Medications/Allergies Home Medications ?Medication ?Instructions ?Recorded ?Confirmed ?Last Taken ?Type Lactobacillus acidophilus 1,000 mmu cells PO DAILY 08/24/24 08/24/24 08/22/24 History (Acidophilus capsule) acetaminophen 500 mg tablet 1,000 mg PO TID pain 08/24/24 08/24/24 Unknown History aspirin 81 mg tablet,delayed 81 mg PO DAILY 08/24/24 08/24/24 08/22/24 History release (Ecotrin Low Strength) bethanechol chloride 25 mg tablet 25 mg PO QID 08/24/24 08/24/24 08/22/24 History buspirone 5 mg tablet 5 mg PO BID 08/24/24 08/24/24 08/22/24 History empagliflozin 10 mg tablet 10 mg PO QAM 08/24/24 08/24/24 08/22/24 History furosemide 20 mg tablet (Lasix) 60 mg PO BID 08/24/24 08/24/24 08/22/24 History methocarbamol 500 mg tablet 500 mg PO Q6H PRN Spasms 08/24/24 08/24/24 Unknown History midodrine 5 mg tablet 5 mg PO TID 08/24/24 08/24/24 08/22/24 History multivitamin with minerals 1 tab PO QAM 08/24/24 08/24/24 08/22/24 History naproxen sodium 220 mg tablet 220 mg PO BID PRN Pain 08/24/24 08/24/24 Unknown History pantoprazole 40 mg tablet,delayed 40 mg PO QAM 08/24/24 08/24/24 08/22/24 History release (Protonix) potassium chloride 20 mEq 20 meq PO BID 08/24/24 08/24/24 08/22/24 History tablet,extended release tamsulosin 0.4 mg capsule 0.4 mg PO QPM 08/24/24 08/24/24 08/22/24 History tramadol 50 mg tablet 50 mg PO Q6H PRN Pain 08/24/24 08/24/24 Unknown History Allergies Allergy/AdvReac Type Severity Reaction Status Date / Time Calcium Channel Blocking Allergy Unknown Verified 08/24/24 12:48 Agent Dilt phenytoin (From Dilantin) Allergy Unknown Verified 08/24/24 12:48 Current Medications Generic Name Dose Route Start Last Admin Trade Name Rosa PRN Reason Stop Dose Admin Aspirin 81 mg 08/25/24 09:00 08/26/24 08:39 Aspirin 81 Mg Ec Tablet PO 81 mg DAILY CARLEEN Administration Buspirone HCl 5 mg 08/24/24 18:00 08/26/24 05:01 Buspirone 10 Mg Tablet PO 5 mg BID@0500,1700 CARLEEN Administration Enoxaparin Sodium 40 mg 08/24/24 16:15 08/25/24 15:18 Enoxaparin 40 Mg/0.4 Ml Syringe SUBCUT 40 mg Q24H CARLEEN Administration Norepinephrine Bitartrate 4 mg in 250 mls @ 0 mls/hr 08/24/24 14:30 08/26/24 09:14 Levophed IV 8 mcg/min .Q0M CARLEEN 30 mls/hr Protocol Titration Per Protocol Meropenem 2,000 mg/ Sodium 50 mls @ 100 mls/hr 08/25/24 07:30 08/26/24 09:14 Chloride IV Infused Q8H CARLEEN Infusion Protocol Furosemide 100 mg/ Sodium 50 mls @ 5 mls/hr 08/25/24 07:30 08/26/24 08:13 Chloride IV 10 mg/hr .Q10H CARLEEN 5 mls/hr Protocol Titration 10 MG/HR Albumin Human 25 g in 100 mls @ 60 mls/hr 08/26/24 12:06 08/26/24 12:25 Albumin IV 08/26/24 13:45 60 mls/hr ONCE ONE Administration Insulin Human Lispro 0 unit 08/24/24 18:00 08/26/24 12:32 Insulin Lispro 100 Unit/1 Ml SUBCUT Not Given [facility] Protocol Metoprolol Tartrate 25 mg 08/25/24 14:34 08/26/24 08:41 Metoprolol Tartrate 25 Mg Tablet PO 25 mg BID@0900,2100 CARLEEN Administration Midodrine 5 mg 08/24/24 21:00 08/26/24 08:40 Midodrine 5 Mg Tablet PO 5 mg TID CARLEEN Administration Morphine Sulfate 4 mg 08/24/24 16:04 08/24/24 18:05 Morphine 4 Mg/Ml Sdv 1 Ml IVP 4 mg Q4H PRN Administration SEVERE PAIN Pantoprazole Sodium 40 mg 08/25/24 09:00 08/26/24 08:[address] 40 Mg Tablet PO 40 mg DAILY CARLEEN Administration Potassium Chloride 20 meq 08/25/24 18:00 08/26/24 08:40 Potassium Chloride Er 20 Meq Tablet PO 20 meq BID CARLEEN Administration Tamsulosin HCl 0.4 mg 08/24/24 18:00 08/25/24 17:46 Tamsulosin 0.4 Mg Capsule PO 0.4 mg QPM CARLEEN Administration PFSH Acute PFSH: Medical History (Updated 08/26/24 @ 15:24 by Renée Flores MD) Atrial fibrillation Pulmonary hypertension Cardiomyopathy Congestive heart failure (Unknown) Type 2 diabetes mellitus BPH (benign prostatic hyperplasia) Vitals/I&O/Wt Last Vital Signs Temp 98.2 F 08/26/24 08:30 Pulse 80 08/26/24 09:18 Resp 17 08/26/24 09:18 BP 104/68 08/26/24 09:00 Pulse Ox 96 08/26/24 09:18 O2 Del Method Room Air 08/26/24 09:18 08/25/24 08/26/24 08/26/24 22:59 06:59 14:59 Intake Total 680.50 / 1740.00 530.25 / 2270.25 777.875 / 777.875 Output Total 2400 / 3300 2975 / 6275 Balance -1719.50 / -1560.00 -2444.75 / -4004.75 777.875 / 777.875 Weight last 48 hrs Weight 219 lb 5.759 oz Weight 223 lb 12.307 oz Weight 227 lb 1.218 oz Physical Exam Const: OTHER: GENERAL: Patient is alert, awake and oriented x3. Laying in the bed heart of air HEART: Regular S1 and S2. No murmur, rub or gallop. LUNGS: Decreased breath sound with basal crackles bilaterally. CENTRAL NERVOUS SYSTEM: Grossly nonfocal. EXTREMITIES: Lower extremities 3+ edema with bilateral lower extremity excoriation and staining consistent with chronic venous insufficiency Urinary Catheter Management: Ordaz: Cath Placed During This Visit: yes Reason for Continuing Indwelling Catheter: Accurate Measurement of Urinary Output in Critically Ill Patients Urinary Catheter Date of Insertion: 08/24/24 Urinary Catheter Time of Insertion: 12:00 Data 08/26/24 03:05 08/26/24 10:50 Micro: Microbiology 08/24/24 12:56 Blood Culture - Preliminary Blood 08/26/24 08:32 Blood Culture - Preliminary Blood SPECIMEN COLLECTED 08/24/24 13:02 Urine Culture - Preliminary Urine,Clean Catch Gram Negative Rods A&P Assessment and plan (1) Septic shock: (2) Atrial fibrillation with RVR: (3) Shock: (4) Anasarca: (5) Congestive heart failure: (6) Sepsis: (7) Venous stasis ulcers of both lower extremities: (8) Elevated serum creatinine: (9) Cardiomyopathy: (10) Pulmonary hypertension: (11) Atrial fibrillation: Plan Patient was admitted with urosepsis given IV fluid. His other comorbidities are ischemic cardiomyopathy with reduced left ventricular ejection fraction along with moderate to severe pulmonary hypertension with mixed picture pre and postcapillary leading to increased right-sided high pressure reducing the venous return, unfortunately it is a permanent condition with poor prognosis. Agree with IV diuresis, patient is on Lasix drip will continue for next 24 hours followed by reducing it to IV 40 mg twice daily Continue pressor support Continue antibiotics Continue titrating off pressor Add midodrine 10 mg 3 times daily Once blood pressure stable may will try to add sildenafil for pulmonary hypertension provided tolerates PDMP PDMP Reviewed: Not Reviewed Consult Attestations Medical Necessity Statement: Patient require continuation hospitalization for above defined care. Coding Level of Care Code Critical Care >/= 30 minutes Diagnoses Septic shock A41.9; R65.21 Atrial fibrillation with RVR I48.91 Shock R57.9 Anasarca R60.1 Acute on chronic systolic congestive heart failure I50.23 Heart failure type: systolic Heart failure chronicity: acute on chronic Sepsis A41.9 Venous stasis ulcers of both lower extremities I83.019; I83.029; L97.919; L97.929 Elevated serum creatinine R79.89 Dilated cardiomyopathy I42.0 Cardiomyopathy type: dilated Pulmonary hypertension I27.20 Atrial fibrillation I48.91
--- NOTE | 2024-08-26 17:54 | PC.NURSE ---
Shift summary: Uneventful shift. Has continued to need levophed, but requirements lower, started shift at 6mcg/min, down to 2mcg/min. Metoprolol stopped. EF resulted , unchanged form last check. EF approximately 25-30%. Lasix drip continued. Started on 1800mL fluid restriction. Total urine output: 1650mL (average output 138ml/hr)
[2024-08-26] MEDS: norepinephrine 4 MG/250 ML BAG 7.5 MG IV ×2 (18:09→21:28)
--- NOTE | 2024-08-26 18:41 | PC.NURSE ---
NUrse spoke to family and gave update. Family informed nurse that the discharge form the nursing which ccured 3 days ago was actually the patient leaving AMA.
[2024-08-27] VITALS (95 sets, daily range): BP systolic 82–120; BP diastolic 48–79; PULSE 62–121; RESP 14–27; TEMP 36.1–38.4; O2SAT 90–99
[2024-08-27 05:21] LABS: Hematocrit 32.6 % (37-53); Hemoglobin 10.10 g/dL (11.27-16.99); Mean Corpuscular HGB Conc 31.0 g/dL (30-55); Mean Corpuscular Hemoglobin 26.8 pg (27-33); Mean Corpuscular Volume 86.5 fl (82-101); Nucleated Red Blood Cells % 0 %; Platelet Count 312 10^3/cmm (157-399); Red Blood Count 3.77 10^6/uL (3.85-5.65); White Blood Count 8.27 10^3/uL (3.29-11.43)
[2024-08-27 05:43] LABS: Anion Gap 14.0 (5-19); Blood Urea Nitrogen 40 mg/dL (8-23); Calcium 8.3 mg/dL (8.5-10.5); Carbon Dioxide 27 mmol/L (22-29); Chloride 101 mmol/L (98-107); Creatinine Clr Calc Pharmacy 64.9182; Glucose 128 mg/dL (65-115); Osmolality Calculated 299 mOsm/kg (285-295); Potassium 3.0 mmol/L (3.5-5.1); Sodium 139 mmol/L (136-145)
[2024-08-27] MEDS: MEROPENEM 2,000 MG in sodium chloride 0.9% (plus) 50 ML 100 MG IV ×3 (07:06→23:07)
--- NOTE | 2024-08-27 07:59 | P.PN_ITS ---
Subjective 2 Subjective: No acute overnight events. Cardiology saw him yesterday and recommended increasing midodrine. He was only on 1 mcg/min of levophed. He is still on a lasix drip and has been having good diuresis. He denies any dyspnea at this time. His legs still hurt occasionally. Medications: Reviewed: Yes Vitals/I&O/Wt Last Vital Signs Temp 97 F L 08/27/24 07:15 Pulse 89 08/27/24 07:15 Resp 16 08/27/24 07:15 BP 111/63 08/27/24 07:15 Pulse Ox 94 08/27/24 07:15 O2 Del Method Room Air 08/27/24 07:15 08/26/24 08/27/24 08/27/24 22:59 06:59 14:59 Intake Total 2390.292 / 3285.709 316.708 / 3602.417 Output Total 1650 / 1650 2950 / 4600 250 / 250 Balance 740.292 / 1635.709 -2633.292 / -997.583 -250 / -250 Weight last 48 hrs Weight 95.799 kg Weight 99.5 kg Physical Exam 2 Narrative: GEN: Alert but poor appearance, anasarca HEENT, normocephalic, atraumatic, PERRLA Neck: Supple Cardio: Regular rate, irregular rhythm, S1-S2, no murmurs noted Pulmonary: Diminished breath sounds especially in the bases Abdomen: Soft, nontender, nondistended, normal bowel sounds : No CVA tenderness, Ordaz placed in the ED Extremity: + edema of both legs (improving). Status post right great and fourth toe amputations. Status post amputation of the left second toe. Skin: Venous stasis ulcers both extremities with erythema. Superficial ulcer left third toe and stump of amputated left second toe. Ulcer left posterior heel with granular tissue at base. Right foot with superficial ulcer on the right second toe and also in dorsum of the right foot. Urinary Catheter Management: Ordaz: Cath Placed During This Visit: yes Reason for Continuing Indwelling Catheter: Accurate Measurement of Urinary Output in Critically Ill Patients Urinary Catheter Date of Insertion: 08/24/24 Urinary Catheter Time of Insertion: 12:00 Data 08/27/24 04:44 08/27/24 04:44 Micro: Microbiology 08/24/24 13:02 Urine Culture - Final Urine,Clean Catch Escherichia coli esbl 08/24/24 12:56 Blood Culture - Preliminary Blood 08/26/24 08:32 Blood Culture - Preliminary Blood SPECIMEN COLLECTED A&P Assessment and plan (1) Shock: Likely component of septic and cardiogenic shock ? Hypervolemic on exam ? minimal levophed; continue weaning - midodrine 10 mg tid ? Goal MAP greater than 65 mmHg ? Telemetry monitoring (2) Septic shock: Septic shock secondary to complicated UTI and likely superimposed cellulitis of both legs Present on admission with fever, tachycardia, hypotension, leukocytosis ? Received 2 L normal saline bolus in the ED and required IV pressors ? Continue meropenem (08/24? ) ? Follow-up blood and urine cultures (3) Acute UTI: Acute complicated UTI - Ucx: ESBL E coli ? Ordaz catheter placed in the ED for urinary retention ? No urinary obstruction noted on CT ? 1 out of 2 blood cultures from 08/24 growing E. coli, likely seeded from urine ? Continue meropenem (4) Diabetic foot ulcers: Diabetic foot ulcers both feet Podiatry consulted and did not think that his wounds were acutely infected Wound care following (5) Venous stasis ulcers of both lower extremities: May some degree of superimposed cellulitis Continue wound care per wound care recommendations IV antibiotics as above (6) Congestive heart failure: Acute on chronic HFrEF ? LVEF 25% with severe global hypokinesis and grade 2 diastolic dysfunction ? BNP elevated, noted to have diffuse anasarca and right pleural effusion on imaging ? Will switch from lasix drip to 40 mg bid IV ? Continue metoprolol ? Telemetry monitoring ? Strict I's and O's and daily weights, daily fluid restriction 1800 ? Cardiology following (7) Type 2 diabetes mellitus: Continue Jardiance Sliding scale insulin Follow-up A1c (8) BPH (benign prostatic hyperplasia): Tamsulosin (9) Anasarca: (10) Atrial fibrillation with RVR: Chronic atrial fibrillation In a RVR 08/25 but now rate controlled on oral metoprolol s/p Watchman procedure, on aspirin Telemetry monitoring. (11) Gross hematuria: Traumatic, developed gross hematuria after Ordaz insertion. No hematuria on initial UA. Hematuria has cleared. (12) Elevated serum creatinine: Baseline serum creatinine unknown. Creatinine 1.5 on admission, increased to 1.6 and down to 1.2 today. He reported history of acute renal failure. He may have underlying CKD. Monitor renal function given on Lasix. Plan Continue IV antibiotics. On Lasix and Levophed drips. GI prophylaxis: Protonix VTE prophylaxis: Lovenox PDMP PDMP Reviewed: Not Reviewed Attestations 2 Medical Necessity Statement*: Patient requires continued ICU hospitalization for IV pressors, IV diuresis, IV antibiotics, and telemetry monitoring. Critical Care Time: Total critical care time spent equals 35 minutes. Coding Level of Care Code Critical Care >/= 30 minutes Diagnoses Shock R57.9 Septic shock A41.9; R65.21 Acute UTI N39.0 Diabetic foot ulcers E11.621; L97.509 Diabetes mellitus type: type 2 Laterality: unspecified laterality Venous stasis ulcers of both lower extremities I83.019; I83.029; L97.919; L97.929 Acute on chronic systolic congestive heart failure I50.23 Heart failure chronicity: acute on chronic Heart failure type: systolic Type 2 diabetes mellitus E11.9 BPH (benign prostatic hyperplasia) N40.0 Anasarca R60.1 Atrial fibrillation with RVR I48.91 Gross hematuria R31.0 Elevated serum creatinine R79.89
[2024-08-27 12:06] LABS: C.Diff PCR (Lab) NEGATIVE (Negative)
--- NOTE | 2024-08-27 15:22 | PC.NURSE ---
During dressing changes, wounds were found to be more purulent compared to yesterday. Hotter to the touch. Patient has also developed a fever of 101.2. NUrse alerted Dr Lobo, she will re-evaluate antibiotics and added tylenol.
--- NOTE | 2024-08-27 16:02 | P.PN_ITS ---
Subjective 2 Subjective: Patient failing better today, he is breathing better sitting in the bed Medications: Reviewed: Yes Vitals/I&O/Wt Last Vital Signs Temp 97 F L 08/27/24 08:15 Pulse 98 08/27/24 11:15 Resp 21 H 08/27/24 11:15 BP 112/73 08/27/24 11:15 Pulse Ox 95 08/27/24 11:15 O2 Del Method Room Air 08/27/24 11:15 08/27/24 08/27/24 08/27/24 06:59 14:59 22:59 Intake Total 316.708 / 3602.417 193.0 / 193.0 Output Total 2950 / 4600 250 / 250 Balance -2633.292 / -997.583 -57.0 / -57.0 Weight last 48 hrs Weight 211 lb 3.2 oz Weight 219 lb 5.759 oz Physical Exam 2 Const: OTHER: GENERAL: Patient is alert, awake and oriented x3. Laying in the bed heart of air HEART: Regular S1 and S2. No murmur, rub or gallop. LUNGS: Decreased breath sound with basal crackles bilaterally. CENTRAL NERVOUS SYSTEM: Grossly nonfocal. EXTREMITIES: Lower extremities 3+ edema with bilateral lower extremity excoriation and staining consistent with chronic venous insufficiency Urinary Catheter Management: Ordaz: Cath Placed During This Visit: yes Reason for Continuing Indwelling Catheter: Accurate Measurement of Urinary Output in Critically Ill Patients Urinary Catheter Date of Insertion: 08/24/24 Urinary Catheter Time of Insertion: 12:00 Data 08/27/24 04:44 08/27/24 04:44 Micro: Microbiology 08/24/24 12:56 Blood Culture - Final Blood Escherichia coli esbl 08/24/24 12:36 Blood Culture - Final Blood Escherichia coli esbl 08/26/24 08:32 Blood Culture - Preliminary Blood NEGATIVE TO DATE 08/24/24 13:02 Urine Culture - Final Urine,Clean Catch Escherichia coli esbl A&P Assessment and plan (1) Septic shock: (2) Atrial fibrillation with RVR: (3) Shock: (4) Anasarca: (5) Congestive heart failure: (6) Sepsis: (7) Venous stasis ulcers of both lower extremities: (8) Elevated serum creatinine: (9) Cardiomyopathy: (10) Pulmonary hypertension: (11) Atrial fibrillation: Plan Patient was admitted with urosepsis given IV fluid. His other comorbidities are ischemic cardiomyopathy with reduced left ventricular ejection fraction along with moderate to severe pulmonary hypertension with mixed picture pre and postcapillary leading to increased right-sided high pressure reducing the venous return, unfortunately it is a permanent condition with poor prognosis. Agree with IV diuresis, patient is on Lasix drip will continue for next 24 hours followed by reducing it to IV 40 mg twice daily Continue pressor support Continue antibiotics Continue titrating off pressor Add midodrine 10 mg 3 times daily Once blood pressure stable may will try to add sildenafil for pulmonary hypertension provided tolerates On today's visit dated 08/27/2024 patient continues to do fine from a cardiovascular perspective he is feeling much better. Has been switched to IV diuretics and off the drip and pressure. Continue current regimen and midodrine PDMP PDMP Reviewed: Not Reviewed Attestations 2 Medical Necessity Statement*: As per medicine Coding Level of Care Code Acute Code for [facility] Fwd Diagnoses Septic shock A41.9; R65.21 Atrial fibrillation with RVR I48.91 Shock R57.9 Anasarca R60.1 Acute on chronic systolic congestive heart failure I50.23 Heart failure chronicity: acute on chronic Heart failure type: systolic Sepsis A41.9 Venous stasis ulcers of both lower extremities I83.019; I83.029; L97.919; L97.929 Elevated serum creatinine R79.89 Dilated cardiomyopathy I42.0 Cardiomyopathy type: dilated Pulmonary hypertension I27.20 Atrial fibrillation I48.91
[2024-08-27] MEDS: FUROsemide 10 mg/mL SDV 4mL 40 MG IVP (17:17)
--- NOTE | 2024-08-27 18:21 | PC.NURSE ---
Shift SUmmary: Levophed titrated off. Lasix changed from IV drip to IV push. metoprolol restarted. Wounds have become more purulent, physician reviewed antibiotic regimen. Total day shift fluid intake: 1200 Total urine output: 1900mL.
[2024-08-28] VITALS (37 sets, daily range): BP systolic 87–112; BP diastolic 49–75; PULSE 58–112; RESP 14–30; TEMP 36.6–37.2; O2SAT 77–100
[2024-08-28 05:34] LABS: Hematocrit 32.2 % (37-53); Hemoglobin 10.00 g/dL (11.27-16.99); Mean Corpuscular HGB Conc 31.1 g/dL (30-55); Mean Corpuscular Hemoglobin 26.8 pg (27-33); Mean Corpuscular Volume 86.3 fl (82-101); Nucleated Red Blood Cells % 0 %; Platelet Count 268 10^3/cmm (157-399); Red Blood Count 3.73 10^6/uL (3.85-5.65); White Blood Count 5.68 10^3/uL (3.29-11.43)
[2024-08-28 05:54] LABS: Alanine Aminotransferase 7 U/L (0-41); Albumin Level 2.6 g/dL (3.5-5.2); Alkaline Phosphatase 124 U/L (40-130); Anion Gap 15.0 (5-19); Aspartate Amino Transferase 15 U/L (0-40); Blood Urea Nitrogen 30 mg/dL (8-23); Calcium 8.2 mg/dL (8.5-10.5); Carbon Dioxide 29 mmol/L (22-29); Chloride 100 mmol/L (98-107); Creatinine Clr Calc Pharmacy 85.9662; Globulin 3.0 g/dL (1.3-4.6); Glucose 112 mg/dL (65-115); Magnesium 1.9 mg/dL (1.7-2.3); Osmolality Calculated 299 mOsm/kg (285-295); Potassium 3.0 mmol/L (3.5-5.1); Sodium 141 mmol/L (136-145); Total Protein 5.6 g/dL (6.6-8.7)
[2024-08-28] MEDS: FUROsemide 10 mg/mL SDV 4mL 40 MG IVP ×2 (06:29→19:27)
--- NOTE | 2024-08-28 08:29 | P.PN_ITS ---
Subjective 2 Subjective: He had diarrhea yesterday. C. difficile was negative. He also had a fever of 101.5. His leg wounds were more erythematous, warm, appeared more purulent than before. He was taken off of Levophed yesterday and his blood pressure has been stable. Also transition to IV Lasix from Lasix drip.. Medications: Reviewed: Yes Vitals/I&O/Wt Last Vital Signs Temp 97.8 F 08/28/24 04:00 Pulse 76 08/28/24 07:53 Resp 16 08/28/24 07:53 BP 94/62 08/28/24 06:30 Pulse Ox 95 08/28/24 07:53 O2 Del Method Room Air 08/28/24 07:53 08/27/24 08/28/24 08/28/24 22:59 06:59 14:59 Intake Total 1470 / 1663.0 200 / 1863.0 Output Total 1650 / 1900 1600 / 3500 Balance -180 / -237.0 -1400 / -1637.0 Weight last 48 hrs Weight 94.302 kg Weight 95.799 kg Physical Exam 2 Narrative: GEN: Alert, no acute distress, anasarca HEENT, normocephalic, atraumatic, PERRLA Neck: Supple Cardio: Regular rate, irregular rhythm, S1-S2, no murmurs noted Pulmonary: Diminished breath sounds especially in the bases Abdomen: Soft, nontender, nondistended, normal bowel sounds : No CVA tenderness, Ordaz placed in the ED Extremity: + edema of both legs (improving). Status post right great and fourth toe amputations. Status post amputation of the left second toe. Skin: Venous stasis ulcers both extremities with erythema. Superficial ulcer left third toe and stump of amputated left second toe. Ulcer left posterior heel with granular tissue at base. Right foot with superficial ulcer on the right second toe and also in dorsum of the right foot. Urinary Catheter Management: Ordaz: Cath Placed During This Visit: yes Reason for Continuing Indwelling Catheter: Accurate Measurement of Urinary Output in Critically Ill Patients Urinary Catheter Date of Insertion: 08/24/24 Urinary Catheter Time of Insertion: 12:00 Data 08/28/24 04:22 08/28/24 04:22 Micro: Microbiology 08/24/24 12:56 Blood Culture - Final Blood Escherichia coli esbl 08/24/24 12:36 Blood Culture - Final Blood Escherichia coli esbl 08/26/24 08:32 Blood Culture - Preliminary Blood NEGATIVE TO DATE A&P Assessment and plan (1) Shock: Likely component of septic and cardiogenic shock ? Hypervolemic on exam ? Off IV pressors - midodrine increased to 10 mg tid ? Goal MAP greater than 65 mmHg ? Telemetry monitoring (2) Congestive heart failure: Acute on chronic HFrEF ? LVEF 25% with severe global hypokinesis and grade 2 diastolic dysfunction ? BNP elevated, noted to have diffuse anasarca and right pleural effusion on imaging ? Switched from Lasix drip to Lasix 40 mg bid IV, has had excellent response to diuresis ? Continue metoprolol ? Telemetry monitoring ? Strict I's and O's and daily weights, daily fluid restriction 1800 ? Cardiology following and input is appreciated (3) Septic shock: Septic shock secondary to complicated UTI and likely superimposed cellulitis of both legs Present on admission with fever, tachycardia, hypotension, leukocytosis ? Received 2 L normal saline bolus in the ED and required IV pressors ? Continue meropenem (08/24? ) and vancomycin (08/27- ) (4) Acute UTI: Acute complicated UTI - Ucx: ESBL E coli ? Ordaz catheter placed in the ED for urinary retention ? No urinary obstruction noted on CT ? 1 out of 2 blood cultures from 08/24 grew ESBL E. coli, likely seeded from urine ? Surveillance blood culture from 08/26 no growth to date ? Continue meropenem (5) Diabetic foot ulcers: Diabetic foot ulcers both feet Podiatry consulted and did not think that his wounds were acutely infected Wound care following (6) Venous stasis ulcers of both lower extremities: May some degree of superimposed cellulitis Fever and increased purulence and erythema yesterday Started vancomycin continue meropenem Continue wound care per wound care recommendations (7) Type 2 diabetes mellitus: Continue Jardiance Sliding scale insulin Follow-up A1c (8) BPH (benign prostatic hyperplasia): Tamsulosin (9) Anasarca: (10) Atrial fibrillation with RVR: Chronic atrial fibrillation In a RVR 08/25 but now rate controlled on oral metoprolol s/p Watchman procedure, on aspirin Telemetry monitoring. (11) Gross hematuria: Traumatic, developed gross hematuria after Ordaz insertion. No hematuria on initial UA. Hematuria has cleared. (12) Elevated serum creatinine: Baseline serum creatinine unknown. Likely cardiorenal given improvement with Lasix Creatinine up to 1.6 this admission, 0.9 today Monitor renal function given on Lasix. Plan Disposition: Will downgrade from the ICU today. Recent discharge from SNF, from requiring moderate assistance with PT GI prophylaxis: Protonix VTE prophylaxis: Lovenox PDMP PDMP Reviewed: Not Reviewed Attestations 2 Medical Necessity Statement*: Patient requires continued hospitalization for IV diuresis, IV antibiotics, telemetry monitoring, and wound care. Critical Care Time: Total critical care time spent equals 35 minutes. Coding Level of Care Code 49856 Diagnoses Shock R57.9 Acute on chronic systolic congestive heart failure I50.23 Heart failure chronicity: acute on chronic Heart failure type: systolic Septic shock A41.9; R65.21 Acute UTI N39.0 Diabetic foot ulcers E11.621; L97.509 Diabetes mellitus type: type 2 Laterality: unspecified laterality Venous stasis ulcers of both lower extremities I83.019; I83.029; L97.919; L97.929 Type 2 diabetes mellitus E11.9 BPH (benign prostatic hyperplasia) N40.0 Anasarca R60.1 Atrial fibrillation with RVR I48.91 Gross hematuria R31.0 Elevated serum creatinine R79.89
[2024-08-28] MEDS: MEROPENEM 2,000 MG in sodium chloride 0.9% (plus) 50 ML 100 MG IV ×3 (08:36→23:31)
--- NOTE | 2024-08-28 15:14 | P.PN_ITS ---
Subjective 2 Subjective: Off the drip and on IV Lasix, feeling much better. Chest is clear. Lower extremity edema has also improved. Blood pressure is stable Medications: Reviewed: Yes Vitals/I&O/Wt Last Vital Signs Temp 98.9 F 08/28/24 12:00 Pulse 77 08/28/24 15:00 Resp 16 08/28/24 15:00 BP 105/61 08/28/24 15:00 Pulse Ox 100 08/28/24 15:00 O2 Del Method Room Air 08/28/24 07:53 08/28/24 08/28/24 08/28/24 06:59 14:59 22:59 Intake Total 200 / 1863.0 1050 / 1050 Output Total 1600 / 3500 Balance -1400 / -1637.0 1050 / 1050 Weight last 48 hrs Weight 207 lb 14.4 oz Weight 211 lb 3.2 oz Physical Exam 2 Const: OTHER: GENERAL: Patient is alert, awake and oriented x3. Laying in the bed heart of air HEART: Regular S1 and S2. No murmur, rub or gallop. LUNGS: Clear to auscultate bilaterally. CENTRAL NERVOUS SYSTEM: Grossly nonfocal. EXTREMITIES: Lower extremities 2+ edema with bilateral lower extremity excoriation and staining consistent with chronic venous insufficiency Urinary Catheter Management: Ordaz: Cath Placed During This Visit: yes Reason for Continuing Indwelling Catheter: Accurate Measurement of Urinary Output in Critically Ill Patients Urinary Catheter Date of Insertion: 08/24/24 Urinary Catheter Time of Insertion: 12:00 Data 08/28/24 04:22 08/28/24 04:22 Micro: Microbiology 08/24/24 12:56 Blood Culture - Final Blood Escherichia coli esbl 08/24/24 12:36 Blood Culture - Final Blood Escherichia coli esbl A&P Assessment and plan (1) Septic shock: (2) Atrial fibrillation with RVR: (3) Shock: (4) Anasarca: (5) Congestive heart failure: (6) Sepsis: (7) Venous stasis ulcers of both lower extremities: (8) Elevated serum creatinine: (9) Cardiomyopathy: (10) Pulmonary hypertension: (11) Atrial fibrillation: Plan On today's visit dated 08/28/2024 patient continues to improve, continue current management will switch to p.o. Lasix 40 mg in the morning at 8 AM and 20 mg at 1400. Continue potassium chloride 20 mEq p.o. twice daily and then add Entresto once a day nightly PDMP PDMP Reviewed: Not Reviewed Attestations 2 Medical Necessity Statement*: Patient require continuation hospitalization for above defined care Coding Level of Care Code Acute Code for Chg Fwd Diagnoses Septic shock A41.9; R65.21 Atrial fibrillation with RVR I48.91 Shock R57.9 Anasarca R60.1 Acute on chronic systolic congestive heart failure I50.23 Heart failure chronicity: acute on chronic Heart failure type: systolic Sepsis A41.9 Venous stasis ulcers of both lower extremities I83.019; I83.029; L97.919; L97.929 Elevated serum creatinine R79.89 Dilated cardiomyopathy I42.0 Cardiomyopathy type: dilated Pulmonary hypertension I27.20 Atrial fibrillation I48.91
[2024-08-29] VITALS (10 sets, daily range): BP systolic 91–114; BP diastolic 57–70; PULSE 56–84; RESP 16–18; TEMP 36.4–36.7; O2SAT 92–96
[2024-08-29 04:06] LABS: Albumin Level 2.3 g/dL (3.5-5.2); Anion Gap 13.8 (5-19); Blood Urea Nitrogen 25 mg/dL (8-23); Calcium 8.0 mg/dL (8.5-10.5); Carbon Dioxide 28 mmol/L (22-29); Chloride 101 mmol/L (98-107); Creatinine Clr Calc Pharmacy 85.9662; Glucose 119 mg/dL (65-115); Magnesium 1.9 mg/dL (1.7-2.3); Potassium 3.8 mmol/L (3.5-5.1); Sodium 139 mmol/L (136-145)
[2024-08-29] MEDS: FUROsemide 10 mg/mL SDV 4mL 40 MG IVP ×2 (06:07→16:33)
[2024-08-29] MEDS: MEROPENEM 2,000 MG in sodium chloride 0.9% (plus) 50 ML 100 MG IV ×3 (08:45→23:55)
--- NOTE | 2024-08-29 11:10 | P.PN_ITS ---
<Statement entered by Renée Flores MD - 08/30/24 21:21> Patient was evaluated and cared for in conjunction with an advanced practice practitioner. I personally examined the patient and reviewed the chart and all pertinent data including imaging, telemetry, and laboratory results. I discussed the patient in detail with the advanced practice practitioner. Please see their note for complete H&P testing result and agreed upon plan of care for the patient. Subjective 2 Subjective: He is sitting on the side of the bed this morning. No chest pain or shortness of breath. IV antibiotic currently infusing. Fluid balance -2 L in the last 24 hours, -7 L cumulative. Blood pressure soft in the upper 90s. Continue Entresto 24/26 mg 1 tablet daily, metoprolol tartrate 25 mg twice a day, midodrine 10 mg 3 times a day Vitals/I&O/Wt Last Vital Signs Temp 97.7 F 08/29/24 08:48 Pulse 68 08/29/24 08:48 Resp 17 08/29/24 08:48 BP 91/57 08/29/24 08:48 Pulse Ox 96 08/29/24 08:48 O2 Del Method Room Air 08/29/24 08:10 08/28/24 08/29/24 08/29/24 22:59 06:59 14:59 Intake Total 699.333 / 2279.333 530 / 2279.333 290 / 290 Output Total 2600 / 3800 1200 / 3800 1000 / 1000 Balance -1900.667 / -1520.667 -670 / -1520.667 -710 / -710 Weight last 48 hrs Weight 207 lb 14 oz Weight 207 lb 14.4 oz Physical Exam 2 Const: COMMON NORMALS: no acute distress and patient oriented x3 GENERAL APPEARANCE: cooperative and comfortable ORIENTATION/CONSCIOUSNESS: Yes awake, Yes oriented to person, Yes oriented to place and Yes oriented to time Chest: COMMONS NORMALS: normal inspection of the chest and normal palpation of entire chest wall CHEST: Yes Symmetrical chest wall rise Resp: COMMON NORMALS: normal respiratory effort, No retractions, No use of accessory muscles and clear to auscultation bilaterally EFFORT & INSPECTION: Yes symmetric chest movement AUSCULTATION: clear to auscultation bilaterally Cardio: COMMON NORMALS: regular rate, regular rhythm, S1 normal heart sound present, S2 normal heart sound present, No gallops present (Cardio), No clicks present (Cardio), No murmurs present (Cardio) and No rub (Cardio) RATE: r egular rate RHYTHM: regular rhythm HEART SOUNDS: S1 normal heart sound present and S2 normal heart sound present PERIPHERAL PULSES: radial pulses present Extremity: GENERAL: Yes edema (1+ pitting edema) OTHER: wounds on the legs and feet, currently covered by dressings Neuro: COMMON NORMALS: patient oriented x3 and moves all extremities S ENSORIUM/ORIENTATION: Yes oriented to person, Yes oriented to place and Yes oriented to time Urinary Catheter Management: Ordaz: Cath Placed During This Visit: yes Reason for Continuing Indwelling Catheter: Other Urinary Catheter Date of Insertion: 08/24/24 Urinary Catheter Time of Insertion: 12:00 Data 08/28/24 04:22 08/29/24 03:20 A&P Assessment and plan (1) Shock: (2) Atrial fibrillation with RVR: (3) Congestive heart failure: (4) Sepsis: (5) Cardiomyopathy: (6) Atrial fibrillation: (7) Pulmonary hypertension: (8) Type 2 diabetes mellitus: Plan He appears near euvolemia, continue Lasix 40 mg in the morning, 20 mg at 2 PM. Appears to be tolerating Entresto with once daily dosing, balancing with midodrine to keep blood pressure up. Systolics running in the 90s currently. PDMP PDMP Reviewed: Not Reviewed Attestations 2 Medical Necessity Statement*: Per hospitalist Coding Level of Care Code Acute Code for Chg Fwd Diagnoses Shock R57.9 Atrial fibrillation with RVR I48.91 Acute on chronic systolic congestive heart failure I50.23 Heart failure chronicity: acute on chronic Heart failure type: systolic Sepsis A41.9 Dilated cardiomyopathy I42.0 Cardiomyopathy type: dilated Atrial fibrillation I48.91 Pulmonary hypertension I27.20 Type 2 diabetes mellitus E11.9
--- NOTE | 2024-08-29 12:51 | PM.PN ---
Subjective Subjective: Patient was evaluated at bedside on [facility] today. He is much more alert and awake during the initial evaluation in August 25. Vitals/I&O/Wt Last Vital Signs Temp 97.7 F 08/29/24 08:48 Pulse 68 08/29/24 08:48 Resp 17 08/29/24 08:48 BP 91/57 08/29/24 08:48 Pulse Ox 96 08/29/24 08:48 O2 Del Method Room Air 08/29/24 08:10 08/28/24 08/29/24 08/29/24 22:59 06:59 14:59 Intake Total 699.333 / 1749.333 530 / 2279.333 530 / 530 Output Total 2600 / 2600 1200 / 3800 1000 / 1000 Balance -1900.667 / -850.667 -670 / -1520.667 -470 / -470 Weight last 48 hrs Weight 94.291 kg Weight 94.302 kg Physical Exam Const: COMMON NORMALS: no acute distress, average body habitus, patient oriented x3 and alert EXAM LIMITATIONS: physical limitations GENERAL APPEARANCE: cooperative, well developed and ill appearing ORIENTATION/CONSCIOUSNESS: Yes awake, Yes oriented to person, Yes oriented to place and Yes oriented to time HENMT: HEAD & SCALP: normal to inspection Eye: GENERAL EYE: appearance normal, both eyes and all related structures Neck/C-Spine: GENERAL: Yes normal visual inspection Chest: CHEST: Yes Symmetrical chest wall rise Resp: COMMON NORMALS: normal respiratory effort EFFORT & INSPECTION: Yes able to speak in complete sentences and Yes symmetric chest movement Cardio: COMMON NORMALS: regular rate RATE: regular rate PERIPHERAL PULSES: dorsalis pedis present positive bilateral Extremity: GENERAL: Yes edema Neuro: COMMON NORMALS: patient oriented x3 SENSORIUM/ORIENTATION: Yes alert, Yes oriented to person, Yes oriented to place and Yes oriented to time Psych: COMMON NORMALS: cooperative and speech normal SPEECH: Yes normal speech Skin: WOUNDS: Yes wounds noted (See wound assessment) Data 08/28/24 04:22 08/29/24 03:20 A&P Assessment and plan (1) Venous stasis ulcers of both lower extremities: (2) Type 2 diabetes mellitus with other skin ulcer: Plan Scattered superficial ulcerations to bilateral lower extremities do not appear actively infected. An exudative layer was overlying the wound beds. Once the wounds were cleansed with gauze and saline a clean, healthy wound bed was present beneath. Will recommend we transition to Hydrofera Blue to open wounds with ABD pad for moisture control. This should be changed daily and as needed if soiled or dislodged. Bilateral lower extremities are edematous. Palpable dorsalis pedis pulses. Less than 3-second capillary refill in distal digits of bilateral feet. He has not had Tubigrip placed on his lower extremities. Will recommend Tubigrip single-layer and leg elevation. This was relayed verbally to nursing staff. Nursing staff report they do not have orders for wounds on his feet including the right dorsal foot, left calcaneus, and left plantar foot. I have discussed with Dr. Ríos today who states he will be signing off and will have further recommendations be provided by wound care. Full evaluation of each wound will be performed tomorrow. For now, we will recommend Hydrofera Blue to all wounds on his lower extremities and feet. The patient reports he has a senior relationship manager coming to live in his house with him in the next few days. She will be able to help care for his open wounds. I do think it is still imperative for him to see outpatient wound care for ongoing treatment after discharge. I discussed with him the option of TS for transportation. He reports he will look more into this and her schedule of coming to [place], where he lives, and [place]. Wound care will continue to follow for ongoing wound care during admission. PDMP PDMP Reviewed: Not Reviewed Attestations Medical Necessity Statement*: Ongoing wound care Time Spent in Patient Care: Greater than 35 minutes Coding Level of Care Code Acute Code for [facility] [place] Fwd Diagnoses Venous stasis ulcers of both lower extremities I83.019; I83.029; L97.919; L97.929 Type 2 diabetes mellitus with other skin ulcer E11.622; L98.499 Wound Assessment Wound Assessment Wound Number 1 Lower Leg: Cluster Wound: Yes Descriptor: Right, Anterior and Inferior Primary Etiology: Venous Ulcer Secondary Etiology: Diabetic Would/Ulcer of the Lower Extremity Length (cm): 4.5 cm Width (cm): 2 cm Depth (cm): 0.1 cm Epithelialization: Small (1-33%) Tunneling: No Undermining: No Limited to Skin Breakdown: Yes Exudate Amount: Medium Drainage Type: Serosanguineous Foul Odor After Cleansing: No Slough/Fibrin?: No Granulation Amount: Medium (34-66%) Granulation Quality: Red and Sunman Necrotic Amount: Small (1-33%) Necrotic Type: Adherent Slough Wound Number 2 Lower Leg: Cluster Wound: Yes Descriptor: Right, Anterior and Superior Primary Etiology: Venous Ulcer Secondary Etiology: Diabetic Would/Ulcer of the Lower Extremity Length (cm): 1.5 cm Width (cm): 2.8 cm Depth (cm): 0.1 cm Epithelialization: Medium (34-66%) Tunneling: No Undermining: No Limited to Skin Breakdown: Yes Exudate Amount: Medium Drainage Type: Serosanguineous Foul Odor After Cleansing: No Slough/Fibrin?: Yes Granulation Amount: Medium (34-66%) Granulation Quality: Sunman and Pale Necrotic Amount: Small (1-33%) Necrotic Type: Adherent Slough Wound Number 3 Lower Leg: Cluster Wound: Yes Descriptor: Right and Posterior Primary Etiology: Venous Ulcer Secondary Etiology: Diabetic Would/Ulcer of the Lower Extremity Length (cm): 1 cm Width (cm): 1 cm Depth (cm): 0.1 cm Epithelialization: Medium (34-66%) Tunneling: No Undermining: No Limited to Skin Breakdown: Yes Exudate Amount: Medium Drainage Type: Serosanguineous Foul Odor After Cleansing: No Slough/Fibrin?: Yes Granulation Amount: Medium (34-66%) Granulation Quality: Sunman Necrotic Amount: Small (1-33%) Necrotic Type: Adherent Slough Wound Number 4 Lower Leg: Cluster Wound: Yes Descriptor: Left and Anterior Primary Etiology: Venous Ulcer Secondary Etiology: Diabetic Would/Ulcer of the Lower Extremity Length (cm): 0 cm Width (cm): 0 cm Depth (cm): 0 cm Epithelialization: Large (67-100%) Exudate Amount: None Present: Wound Number 5 Lower Leg: Cluster Wound: Yes Descriptor: Left and Posterior Primary Etiology: Venous Ulcer Secondary Etiology: Diabetic Would/Ulcer of the Lower Extremity Length (cm): 8 cm Width (cm): 7 cm Depth (cm): 0.1 cm Epithelialization: Small (1-33%) Tunneling: No Undermining: No Limited to Skin Breakdown: Yes Exudate Amount: Medium Drainage Type: Serosanguineous Foul Odor After Cleansing: No Slough/Fibrin?: Yes Granulation Amount: Medium (34-66%) Granulation Quality: Sunman Necrotic Amount: Small (1-33%) Necrotic Type: Adherent Slough Wound Number 6 Ankle: Descriptor: Left and Medial Primary Etiology: Venous Ulcer Secondary Etiology: Diabetic Would/Ulcer of the Lower Extremity Length (cm): 6.5 cm Width (cm): 4 cm Depth (cm): 0.1 cm Epithelialization: None Tunneling: No Undermining: No Limited to Skin Breakdown: Yes Exudate Amount: Medium Drainage Type: Serosanguineous Foul Odor After Cleansing: No Slough/Fibrin?: Yes Granulation Amount: Small (1-33%) Granulation Quality: Sunman Necrotic Amount: Small (1-33%) Necrotic Type: Adherent Slough Wound Orders All Wounds: All wounds Dressing change frequency: Daily and Other (As needed if soiled or dislodged) Wound Cleansing: Saline Primary Wound Care Dressing: Hydrofera blue ready Secondary Wound Care Dressing: ABD pad, Soft form stretch gauze 4 inch Edema Control: Elevate legs to heart level for 30 mins daily and/or when sitting and Tubigrip single layer
[2024-08-29] MEDS: morphine 4 mg/mL SDV 1 mL IVP (14:37)
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
--- NOTE | 2024-08-29 18:25 | USCV_ITS ---
Nolan Khan Age: 74 Gender: M : 1950 Exam Date: 08/29/2024 21:22 Ordering Phys: Kieran Nina MD Technologist: MING Exam Location: [facility] Indication: chronic, severe, bilateral calf swelling, edema, blistering, gaiter zone pigmentatin, erythema HISTORY: chronic, severe, bilateral calf swelling, edema, blistering, gaiter zone pigmentatin, erythema PROCEDURES: Venous duplex imaging was performed in bilateral lower extremities. The following venous structures were evaluated: common femoral vein, profunda vein, proximal portion of the greater saphenous vein, superficial femoral vein, and the popliteal vein. In addition, the posterior tibial veins were evaluated. Serial compression, augmentation maneuvers, and spectral Doppler flow evaluation were performed, which were normal. Bilaterally, the common femoral, superficial femoral, profunda femoral, popliteal, posterior tibial, andgreater saphenous veins were identified and interrogated in the standard fashion. These veins were found to be easily compressible with spontaneous blood flow. No evidence of thrombus noted. CONCLUSIONS No evidence of right lower extremity DVT. No evidence of left lower extremity DVT. Kieran Alvarez MD (Electronically Signed) Final Date: 30 August 2024 10:05 S
[2024-08-29] MEDS: nystatin 100,000 unit/mL UDC 5 mL 100000 UNIT PO (20:29)
[2024-08-30] VITALS (9 sets, daily range): BP systolic 93–110; BP diastolic 57–64; PULSE 58–72; RESP 16–20; TEMP 36.4–36.7; O2SAT 92–98
[2024-08-30 05:50] LABS: Albumin Level 2.8 g/dL (3.5-5.2); Anion Gap 13.9 (5-19); Blood Urea Nitrogen 22 mg/dL (8-23); Calcium 8.6 mg/dL (8.5-10.5); Carbon Dioxide 30 mmol/L (22-29); Chloride 97 mmol/L (98-107); Creatinine Clr Calc Pharmacy 85.9840; Glucose 81 mg/dL (65-115); Magnesium 1.9 mg/dL (1.7-2.3); Potassium 3.9 mmol/L (3.5-5.1); Sodium 137 mmol/L (136-145)
[2024-08-30] MEDS: FUROsemide 10 mg/mL SDV 4mL 40 MG IVP ×2 (06:15→17:08)
[2024-08-30] MEDS: nystatin 100,000 unit/mL UDC 5 mL 100000 UNIT PO ×4 (08:25→21:13)
[2024-08-30] MEDS: MEROPENEM 2,000 MG in sodium chloride 0.9% (plus) 50 ML 100 MG IV ×2 (08:26→17:06)
--- NOTE | 2024-08-30 12:53 | P.PN_ITS ---
<Statement entered by Renée Flores MD - 08/30/24 20:39> Patient was evaluated and cared for in conjunction with an advanced practice practitioner. I personally have not examined the patient but reviewed the chart and all pertinent data including imaging, telemetry, and laboratory results. I discussed the patient in detail with the advanced practice practitioner. Please see their note for complete H&P testing result and agreed upon plan of care for the patient. Subjective 2 Subjective: He was sleeping soundly this morning on exam. He is sitting on the bed, with legs dependent. Vitals/I&O/Wt Last Vital Signs Temp 98.1 F 08/30/24 11:00 Pulse 70 08/30/24 11:00 Resp 20 H 08/30/24 11:00 BP 93/60 08/30/24 11:00 Pulse Ox 94 08/30/24 11:00 O2 Del Method Room Air 08/30/24 11:00 08/29/24 08/30/24 08/30/24 22:59 06:59 14:59 Intake Total 50 / 630 50 / 630 410 / 410 Output Total 950 / 2550 600 / 2550 1000 / 1000 Balance -900 / -1920 -550 / -1920 -590 / -590 Weight last 48 hrs Weight 208 lb Weight 207 lb 14 oz Physical Exam 2 Const: COMMON NORMALS: no acute distress and patient oriented x3 GENERAL APPEARANCE: cooperative and comfortable ORIENTATION/CONSCIOUSNESS: Yes awake, Yes oriented to person, Yes oriented to place and Yes oriented to time Chest: COMMONS NORMALS: normal inspection of the chest and normal palpation of entire chest wall CHEST: Yes Symmetrical chest wall rise Resp: COMMON NORMALS: normal respiratory effort, No retractions, No use of accessory muscles and clear to auscultation bilaterally EFFORT & INSPECTION: Yes symmetric chest movement AUSCULTATION: clear to auscultation bilaterally Cardio: COMMON NORMALS: regular rate, regular rhythm, S1 normal heart sound present, S2 normal heart sound present, No gallops present (Cardio), No clicks present (Cardio), No murmurs present (Cardio) and No rub (Cardio) RATE: r egular rate RHYTHM: regular rhythm HEART SOUNDS: S1 normal heart sound present and S2 normal heart sound present PERIPHERAL PULSES: radial pulses present Extremity: NARRATIVE EXTREMITY EXAM: diabetic ulcers on both legs, previously documented Neuro: COMMON NORMALS: patient oriented x3 and moves all extremities S ENSORIUM/ORIENTATION: Yes oriented to person, Yes oriented to place and Yes oriented to time Urinary Catheter Management: Ordaz: Cath Placed During This Visit: yes Reason for Continuing Indwelling Catheter: Other Urinary Catheter Date of Insertion: 08/24/24 Urinary Catheter Time of Insertion: 12:00 Data 08/28/24 04:22 08/30/24 04:59 A&P Assessment and plan 1. Shock: 2. Congestive heart failure: 3. Sepsis: 4. Cardiomyopathy: 5. Atrial fibrillation: 6. Diabetic foot ulcers: 7. Type 2 diabetes mellitus: Plan: Blood pressures in the 95-110 systolic range. Entresto has been discontinued. Continue midodrine, Lasix, metoprolol, spironolactone. PDMP PDMP Reviewed: Not Reviewed Attestations 2 Medical Necessity Statement*: Per hospitalist Coding Level of Care Code Acute Code for Chg Fwd Diagnoses Shock R57.9 Congestive heart failure I50.9 Sepsis A41.9 Cardiomyopathy I42.9 Atrial fibrillation I48.91 Diabetic foot ulcers E11.621; L97.509 Type 2 diabetes mellitus E11.9
--- NOTE | 2024-08-30 13:36 | PC.OT ---
OT TREATMENT ATTEMPTED. UPON THERAPIST ENTRANCE, THE PATIENT I SPRAWLED ACROSS THE BED WITH FEET DANGLING OFF SIDE OF BED. PATIENT REQUESTS ASSISTANCE TO SIT. GOOD DYNAMIC SITTING BALANCE NOTED. THERAPIST OFFERED GROOMING TASK TO PATIENT AND HE STATED, LET'S NOT MAKE IT COMPLICATED . PATIENT THEN STATES SOMETHING ABOUT TALKING WITH 2 REALTORS AND DECLINES ADL PERFORMANCE AT THIS TIME. THERAPIST OFFERED PATIENT TRANSFER TO A RECLINER SO THAT HE COULD ELEVATE HIS FEET AND SIT WITH BACK SUPPORT. PATIENT REFUSED. THERAPIST ENCOURAGED PATIENT TO SIT IN BED WITH HOB AND FOOT OF BED ELEVATED; PATIENT REFUSES THIS WELL. PATIENT REQUESTS TRAMADOL 100 SEVERAL TIMES AND OT STUDENT INFORMS NURSING. PATIENT LEFT WITH CALL LIGHT AND ALL NEEDS IN REACH.
--- NOTE | 2024-08-30 14:05 | P.PN_ITS ---
Subjective 2 Subjective: Patient evaluated at bedside on [facility] today. Patient sitting with legs hanging in dependent position. Dressings to feet are partially hanging off. Vitals/I&O/Wt Last Vital Signs Temp 98.1 F 08/30/24 11:00 Pulse 70 08/30/24 11:00 Resp 20 H 08/30/24 11:00 BP 93/60 08/30/24 11:00 Pulse Ox 94 08/30/24 11:00 O2 Del Method Room Air 08/30/24 11:00 08/29/24 08/30/24 08/30/24 22:59 06:59 14:59 Intake Total 50 / 580 50 / 630 410 / 410 Output Total 950 / 1950 600 / 2550 1000 / 1000 Balance -900 / -1370 -550 / -1920 -590 / -590 Weight last 48 hrs Weight 94.347 kg Weight 94.291 kg Physical Exam 2 Const: COMMON NORMALS: no acute distress, average body habitus, patient oriented x3 and alert EXAM LIMITATIONS: physical limitations GENERAL APPEARANCE: cooperative, well developed and ill appearing O RIENTATION/CONSCIOUSNESS: Yes awake, Yes oriented to person, Yes oriented to place and Yes oriented to time HENMT: HEAD & SCALP: normal to inspection Eye: GENERAL EYE: appearance normal, both eyes and all related structures Neck/C-Spine: GENERAL: Yes normal visual inspection Chest: CHEST: Yes Symmetrical chest wall rise Resp: COMMON NORMALS: normal respiratory effort EFFORT & INSPECTION: Yes able to speak in complete sentences and Yes symmetric chest movement Cardio: COMMON NORMALS: regular rate RATE: regular rate PERIPHERAL PULSES: dorsalis pedis present positive bilateral Back/Pelvis: SACRUM: no ecchymosis, erythema, no swelling, tenderness and No sacral edema COCCYX: no swelling and Coccyx tenderness present OTHER: Excoriation noted to sacrum, 0.5x0.5x0.1cm small superficial ulceration noted to scrotum. [place] healthy wound base. No adherent slough. Extremity: GENERAL: Yes edema Neuro: COMMON NORMALS: patient oriented x3 SENSORIUM/ORIENTATION: Yes alert, Yes oriented to person, Yes oriented to place and Yes oriented to time Psych: COMMON NORMALS: cooperative and speech normal SPEECH: Yes normal speech Skin: WOUNDS: Yes wounds noted (See wound assessment) Data 08/28/24 04:22 08/30/24 04:59 A&P Assessment and plan 1. Venous stasis ulcers of both lower extremities: 2. Type 2 diabetes mellitus with other skin ulcer: 3. Diabetic foot ulcers: Plan: Examination is difficult and a lengthy process due to patient's physical deconditioning and inability to hold his legs up and bend at the knee. No signs or symptoms of active infection in any open wound. A large amount of serosanguineous drainage was noted on the dressings upon removal. He reports he has been sitting with his legs hanging down most of the day. Nursing staff have tried to get him to sit in the recliner with his legs elevated, though he has refused. We had a very hubert discussion regarding lower extremity edema and the need to elevate his legs to expedite wound healing. 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 He states elevating his legs is reasonable. Will have nursing staff attempt to have him sit in a recliner with his legs elevated rather than hanging them off the side of his bed. Scattered superficial ulcerations to bilateral lower extremities show signs of maceration to the periwounds. Wound beds appear healthy with minimal adherent slough present. Will recommend we transition back to silvercel to open wounds with ABD pad for moisture control. This should be changed daily and as needed if soiled or dislodged. Bilateral lower extremities are edematous. Palpable dorsalis pedis pulses. Less than 3-second capillary refill in distal digits of bilateral feet. Unfortunately, Tubigrip is not available at this time. Will use Bassem wrap's for modest edema control. I did educate nursing staff thoroughly that if these were to become saturated they would need to be changed immediately. Evaluation of his feet today reveal scattered open wounds to both feet including right dorsal foot, right second toe, left first metatarsal head, left dorsal foot, and left calcaneus. Will recommend silvercel to these wounds as well. Excoriation to the sacrum and a small open ulceration is noted to his scrotum. Will recommend Triad over the excoriation and the open ulceration to the scrotum. This should be applied at least twice daily and with each brief change. Thorough cleansing should be performed between applications. He should be turned and reposition frequently, at least every 2 hours. Nursing documentation reflects an open ulceration to the right hip and right buttock. Upon evaluation, it appears these areas have healed. Will recommend Optifoam over right hip for protection. Right buttock will be covered with Triad. The patient reports he has a rug renovator coming to live in his house with him in the next few days. She will be able to help care for his open wounds. I do think it is still imperative for him to see outpatient wound care for ongoing treatment after discharge. I discussed with him the option of SMTS for transportation. He reports he will look more into this and her schedule of coming to [place], where he lives, and [place]. Wound care will continue to follow for ongoing wound care during admission. PDMP PDMP Reviewed: Not Reviewed Attestations 2 Medical Necessity Statement*: Ongoing wound care Time Spent in Patient Care: Greater than 35 minutes Coding Level of Care Code Acute Code for Chg Fwd Diagnoses Venous stasis ulcers of both lower extremities I83.019; I83.029; L97.919; L97.929 Type 2 diabetes mellitus with other skin ulcer E11.622; L98.499 Diabetic foot ulcers E11.621; L97.509 Wound Assessment Wound Assessment Wound Number 1 Lower Leg: Cluster Wound: Yes Descriptor: Right, Anterior and Inferior Primary Etiology: Venous Ulcer Secondary Etiology: Diabetic Would/Ulcer of the Lower Extremity Length (cm): 4.5 cm Width (cm): 2 cm Depth (cm): 0.1 cm Epithelialization: Small (1-33%) Tunneling: No Undermining: No Limited to Skin Breakdown: Yes Exudate Amount: Large Drainage Type: Serosanguineous Foul Odor After Cleansing: No Slough/Fibrin?: No Granulation Amount: Medium (34-66%) Granulation Quality: Red and [place] Necrotic Amount: Small (1-33%) Necrotic Type: Adherent Slough Wound Number 2 Lower Leg: Cluster Wound: Yes Descriptor: Right, Anterior and Superior Primary Etiology: Venous Ulcer Secondary Etiology: Diabetic Would/Ulcer of the Lower Extremity Length (cm): 1.5 cm Width (cm): 2.8 cm Depth (cm): 0.1 cm Epithelialization: Medium (34-66%) Tunneling: No Undermining: No Limited to Skin Breakdown: Yes Exudate Amount: Medium Drainage Type: Serosanguineous Foul Odor After Cleansing: No Slough/Fibrin?: Yes Granulation Amount: Medium (34-66%) Granulation Quality: [place] and Pale Necrotic Amount: Small (1-33%) Necrotic Type: Adherent Slough Wound Number 3 Lower Leg: Cluster Wound: Yes Descriptor: Right and Posterior Primary Etiology: Venous Ulcer Secondary Etiology: Diabetic Would/Ulcer of the Lower Extremity Length (cm): 1 cm Width (cm): 1 cm Depth (cm): 0.1 cm Epithelialization: Medium (34-66%) Tunneling: No Undermining: No Limited to Skin Breakdown: Yes Exudate Amount: Medium Drainage Type: Serosanguineous Foul Odor After Cleansing: No Slough/Fibrin?: Yes Granulation Amount: Medium (34-66%) Granulation Quality: [place] Necrotic Amount: Small (1-33%) Necrotic Type: Adherent Slough Wound Number 5 Lower Leg: Cluster Wound: Yes Descriptor: Left and Posterior Primary Etiology: Venous Ulcer Secondary Etiology: Diabetic Would/Ulcer of the Lower Extremity Length (cm): 8 cm Width (cm): 7 cm Depth (cm): 0.1 cm Epithelialization: Small (1-33%) Tunneling: No Undermining: No Limited to Skin Breakdown: Yes Exudate Amount: Large Drainage Type: Serosanguineous Foul Odor After Cleansing: No Slough/Fibrin?: Yes Granulation Amount: Medium (34-66%) Granulation Quality: [place] Necrotic Amount: Small (1-33%) Necrotic Type: Adherent Slough Wound Number 6 Ankle: Descriptor: Left and Medial Primary Etiology: Venous Ulcer Secondary Etiology: Diabetic Would/Ulcer of the Lower Extremity Length (cm): 6.5 cm Width (cm): 4 cm Depth (cm): 0.1 cm Epithelialization: None Tunneling: No Undermining: No Limited to Skin Breakdown: Yes Exudate Amount: Large Drainage Type: Serosanguineous Foul Odor After Cleansing: No Slough/Fibrin?: Yes Granulation Amount: Small (1-33%) Granulation Quality: [place] Necrotic Amount: Small (1-33%) Necrotic Type: Adherent Slough Wound Number 8 Foot: Descriptor: Dorsal and Right Primary Etiology: Diabetic Would/Ulcer of the Lower Extremity Length (cm): 3.5 cm Width (cm): 3 cm Depth (cm): 0.1 cm Tunneling: No Undermining: No Limited to Skin Breakdown: Yes Exudate Amount: Large Drainage Type: Serosanguineous Foul Odor After Cleansing: No Slough/Fibrin?: Yes Granulation Amount: Large (67-100%) Granulation Quality: Red and [place] Necrotic Amount: Small (1-33%) Necrotic Type: Adherent Slough Wound Number 9 Heel: Descriptor: Left Primary Etiology: Pressure Ulcer Secondary Etiology: Diabetic Would/Ulcer of the Lower Extremity Classification: Stage 3 Length (cm): 3 cm Width (cm): 1 cm Depth (cm): 0.3 cm Epithelialization: None Tunneling: No Undermining: No Exudate Amount: Medium Drainage Type: Serosanguineous Foul Odor After Cleansing: No Slough/Fibrin?: Yes Granulation Amount: Large (67-100%) Granulation Quality: Red Necrotic Amount: Small (1-33%) Necrotic Type: Adherent Slough Wound Number 10 Metatarsal Head First: Descriptor: Plantar and Left Primary Etiology: Diabetic Would/Ulcer of the Lower Extremity Classification: Grade 1 Length (cm): 0.2 cm Width (cm): 0.2 cm Depth (cm): 0.2 cm Epithelialization: None Tunneling: No Undermining: No Exudate Amount: Medium Drainage Type: Serosanguineous Foul Odor After Cleansing: No Slough/Fibrin?: No Granulation Amount: Small (1-33%) Granulation Quality: [place] Necrotic Amount: None Wound Number 11 Toe Second: Descriptor: Left Primary Etiology: Trauma, Other Length (cm): 1 cm Width (cm): 1 cm Depth (cm): 0.1 cm Epithelialization: Small (1-33%) Tunneling: No Undermining: No Limited to Skin Breakdown: Yes Exudate Amount: Small Drainage Type: Sanguinous Foul Odor After Cleansing: No Slough/Fibrin?: No Granulation Amount: None Necrotic Amount: None Wound Orders All Wounds: All wounds Dressing change frequency: Daily and Other (As needed if soiled or dislodged) Wound Cleansing: Saline Primary Wound Care Dressing: Silvercel Secondary Wound Care Dressing: ABD pad, Soft form stretch gauze 4 inch Edema Control: Elevate legs to heart level for 30 mins daily and/or when sitting and Other Edema Control Order/Instructions (Bassem bandages wrapped lightly)
--- NOTE | 2024-08-30 14:48 | P.PN_ITS ---
Subjective 2 Subjective: 74-year-old male noted to have pulmonary hypertension last evening underwent continuous oximetry last evening with no reported significant desats. He also had leg Dopplers showing no DVT. Patient declines to have additional workup. This morning in morning rounds I was notified that the patient did not want to see me anymore. Dr. Calhoun and I discussed and decided that I would asked the patient if he was sure he wanted to a different doctor than me. He tells me that we were just having a personality difference yesterday but that we were communicating fine now. I gave him his results above and also counseled him that he has ESBL with a resistant bug and that we would give 7 days of IV antibiotics and then discharge him home on pills. Patient declines nursing facility. He declines home health on Medicare and [facility]. He wants to just have pills when he leaves the hospital and nothing more Vitals/I&O/Wt Last Vital Signs Temp 98.1 F 08/30/24 11:00 Pulse 70 08/30/24 11:00 Resp 20 H 08/30/24 11:00 BP 93/60 08/30/24 11:00 Pulse Ox 94 08/30/24 11:00 O2 Del Method Room Air 08/30/24 11:00 08/29/24 08/30/24 08/30/24 22:59 06:59 14:59 Intake Total 50 / 580 50 / 630 410 / 410 Output Total 950 / 1950 600 / 2550 1000 / 1000 Balance -900 / -1370 -550 / -1920 -590 / -590 Weight last 48 hrs Weight 94.347 kg Weight 94.291 kg Physical Exam 2 Narrative: General well-developed well-nourished male in no acute cardiopulmonary distress he is hard of hearing. Patient complains of pain in the mouth and I see that he has an aphthous ulcer approximately 1 cm x 7.5 mm white ulcer CV irregular but rate is controlled Lungs diminished breath sounds in the bases right worse than left Legs chronic venous stasis changes with edema and dependent hyperemia Urinary Catheter Management: Ordaz: Cath Placed During This Visit: yes Reason for Continuing Indwelling Catheter: Other Urinary Catheter Date of Insertion: 08/24/24 Urinary Catheter Time of Insertion: 12:00 Data 08/28/24 04:22 08/30/24 04:59 A&P Assessment and plan 1. Acute on chronic systolic congestive heart failure: Acute on chronic HFrEF ? LVEF 25% with severe global hypokinesis and grade 2 diastolic dysfunction ? BNP elevated, noted to have diffuse anasarca and right pleural effusion on imaging ? Switched from Lasix drip to Lasix 40 mg bid IV, has had excellent response to diuresis ? Continue metoprolol ? Telemetry monitoring ? Strict I's and O's and daily weights, daily fluid restriction 1800 ? Cardiology following and input is appreciated Add spironolactone 25 mg twice a day and magnesium 400 mg daily. Weight has been stable at 94 kg diuresed from 101 kg on admission 2. Acute UTI: Acute complicated UTI - Ucx: ESBL E coli ? Ordaz catheter placed in the ED for urinary retention ? No urinary obstruction noted on CT ? 2 out of 2 blood cultures from 08/24 grew ESBL E. coli, likely seeded from urine ? Surveillance blood culture from 08/26 no growth to date ? Continue meropenem. Will discuss with Dr. Carlisle from infectious disease what would be the best course of antibiotic choice duration for this patient that would be oral 3. Diabetic foot ulcers: Diabetic foot ulcers both feet Podiatry consulted and did not think that his wounds were acutely infected Wound care following Patient is unwilling to elevate his legs and this has been discussed with him by myself previous physician as well as his nurses 4. Venous stasis ulcers of both lower extremities: May some degree of superimposed cellulitis Fever and increased purulence and erythema yesterday Started vancomycin continue meropenem Continue wound care per wound care recommendations Venous Dopplers are negative for DVT 5. Type 2 diabetes mellitus: Continue Jardiance Sliding scale insulin Follow-up A1c 6. BPH (benign prostatic hyperplasia): Tamsulosin 7. Atrial fibrillation with RVR: Chronic atrial fibrillation In a RVR 08/25 but now rate controlled on oral metoprolol s/p Watchman procedure, on aspirin Telemetry monitoring. 8. Gross hematuria: Traumatic, developed gross hematuria after Ordaz insertion. No hematuria on initial UA. Hematuria has cleared. Will need to change Ordaz prior to discharge 9. Elevated serum creatinine: Baseline serum creatinine unknown. Likely cardiorenal given improvement with Lasix Creatinine up to 1.6 this admission, 0.9 today Monitor renal function given on Lasix. Plan: Disposition: Wants to go home following this discharge. Recent discharge from SNF, from requiring moderate assistance with PT GI prophylaxis: Protonix VTE prophylaxis: Lovenox Encourage leg elevation but patient is resistant. Leg Dopplers are negative for DVT patient declines compression dressing PDMP PDMP Reviewed: Not Reviewed Attestations 2 Medical Necessity Statement*: Patient remains in hospital for IV antibiotics for 1-2 more days. Will clarify outpatient antibiotic course with infectious disease physician Coding Level of Care Code 01856 Diagnoses Acute on chronic systolic congestive heart failure I50.23 Heart failure chronicity: acute on chronic Heart failure type: systolic Acute UTI N39.0 Diabetic foot ulcers E11.621; L97.509 Diabetes mellitus type: type 2 Laterality: unspecified laterality Venous stasis ulcers of both lower extremities I83.019; I83.029; L97.919; L97.929 Type 2 diabetes mellitus E11.9 BPH (benign prostatic hyperplasia) N40.0 Atrial fibrillation with RVR I48.91 Gross hematuria R31.0 Elevated serum creatinine R79.89 Time Spent (min) 35
[2024-08-31] VITALS (10 sets, daily range): BP systolic 93–103; BP diastolic 52–67; PULSE 59–80; RESP 16–18; TEMP 36.5–37.1; O2SAT 92–100
[2024-08-31] MEDS: MEROPENEM 2,000 MG in sodium chloride 0.9% (plus) 50 ML 100 MG IV ×4 (00:15→23:48)
[2024-08-31 04:44] LABS: Estmated Average Glucose 134; Hemoglobin A1C 6.3 % (4.0-6.0)
[2024-08-31 04:49] LABS: Albumin Level 2.8 g/dL (3.5-5.2); Anion Gap 14.4 (5-19); Blood Urea Nitrogen 20 mg/dL (8-23); Calcium 9.0 mg/dL (8.5-10.5); Carbon Dioxide 30 mmol/L (22-29); Chloride 98 mmol/L (98-107); Creatinine Clr Calc Pharmacy 85.9840; Glucose 91 mg/dL (65-115); Magnesium 2.1 mg/dL (1.7-2.3); Potassium 4.4 mmol/L (3.5-5.1); Sodium 138 mmol/L (136-145)
[2024-08-31] MEDS: FUROsemide 10 mg/mL SDV 4mL 40 MG IVP ×2 (06:09→18:02)
[2024-08-31] MEDS: nystatin 100,000 unit/mL UDC 5 mL 100000 UNIT PO ×3 (07:58→20:07)
[2024-08-31] MEDS: HYDROPHILIC 1 APPLIC TOPICAL (08:53)
--- NOTE | 2024-08-31 12:04 | P.PN_ITS ---
Subjective 2 Subjective: Patient resting in bed during visit. Heel protectors in place. Bassem wrap's are in place from yesterday with no drainage strikethrough noted. Patient alert and oriented to himself and place, though not time. According to nursing staff he has had a tramadol and since then has been rather sleepy. Vitals/I&O/Wt Last Vital Signs Temp 98.1 F 08/31/24 10:58 Pulse 65 08/31/24 10:58 Resp 18 08/31/24 10:58 BP 103/67 08/31/24 10:58 Pulse Ox 92 08/31/24 10:58 O2 Del Method Room Air 08/31/24 10:58 08/30/24 08/31/24 08/31/24 22:59 06:59 14:59 Intake Total 50 / 460 50 / 510 Output Total 900 / 1900 200 / 2100 500 / 500 Balance -850 / -1440 -150 / -1590 -500 / -500 Weight last 48 hrs Weight 96.162 kg Weight 94.347 kg Physical Exam 2 Const: COMMON NORMALS: no acute distress, average body habitus and patient oriented x3 EXAM LIMITATIONS: physical limitations GENERAL APPEARANCE: c ooperative, well developed and ill appearing ORIENTATION/CONSCIOUSNESS: Yes awake, Yes oriented to person and Yes oriented to place HENMT: HEAD & SCALP: normal to inspection Eye: GENERAL EYE: appearance normal, both eyes and all related structures Neck/C-Spine: GENERAL: Yes normal visual inspection Chest: CHEST: Yes Symmetrical chest wall rise Resp: COMMON NORMALS: normal respiratory effort EFFORT & INSPECTION: Yes able to speak in complete sentences and Yes symmetric chest movement Cardio: COMMON NORMALS: regular rate RATE: regular rate PERIPHERAL PULSES: dorsalis pedis present positive bilateral Back/Pelvis: SACRUM: no ecchymosis, erythema, no swelling, tenderness and No sacral edema COCCYX: no swelling and Coccyx tenderness present OTHER: Excoriation noted to sacrum, 0.5x0.5x0.1cm small superficial ulceration noted to scrotum. [place] healthy wound base. No adherent slough. Extremity: GENERAL: Yes edema OTHER: Neuro: COMMON NORMALS: patient oriented x3 SENSORIUM/ORIENTATION: Yes oriented to person, Yes oriented to place and Yes other (drowsy, slightly confused) Psych: COMMON NORMALS: cooperative and speech normal SPEECH: Yes normal speech Skin: WOUNDS: Yes wounds noted (See wound assessment) Data 08/28/24 04:22 08/31/24 04:17 Micro: Microbiology 08/26/24 08:32 Blood Culture - Final Blood NO GROWTH AFTER 5 DAYS A&P Assessment and plan 1. Venous stasis ulcers of both lower extremities: 2. Type 2 diabetes mellitus with other skin ulcer: 3. Diabetic foot ulcers: Plan: Examination was again difficult and a lengthy process due to patient's physical deconditioning and inability to hold his legs up and bend at the knee. Remains without signs or symptoms of active infection in any open wound. All wounds appear slightly improved from yesterday's evaluation. Per staff nurse, patient has not been compliant with leg elevation. His Bassem wrap's have stayed in place and the edema is slightly improved from yesterday. No drainage strikethrough was noted on the Bassem wrap's. Moderate amount of drainage noted from each wound. Periwound maceration has improved with the use of silvercel. Will recommend continuing this daily to all open wounds with ABD pads for moisture control. Will also continue Bassem wrap for modest edema control. If wraps become saturated with strikethrough drainage, this needs to be changed immediately. Frequent education regarding leg elevation will be beneficial. Excoriation to the sacrum and a small open ulceration is noted to his scrotum due to frequent bowel movements. Nursing staff have been using protective ointment rather than Triad. I have educated nursing staff to utilize Triad with each brief change and at least twice daily. Thorough cleansing should be performed between applications. He should be turned and reposition frequently, at least every 2 hours. Given his inabilities to perform his own wound care, and reports that he may not have a reliable caregiver in his home, he would be best served in a half-way facility upon discharge. Wound care will continue to follow for ongoing wound care during admission. PDMP PDMP Reviewed: Not Reviewed Attestations 2 Medical Necessity Statement*: ongoing wound care Time Spent in Patient Care: Greater than 35 minutes Coding Level of Care Code Acute Code for Chg Fwd Diagnoses Venous stasis ulcers of both lower extremities I83.019; I83.029; L97.919; L97.929 Type 2 diabetes mellitus with other skin ulcer E11.622; L98.499 Diabetic foot ulcers E11.621; L97.509 Wound Orders All Wounds: All wounds Dressing change frequency: Daily and Other (As needed if soiled or dislodged) Wound Cleansing: Saline Primary Wound Care Dressing: Silvercel Secondary Wound Care Dressing: ABD pad, Soft form stretch gauze 4 inch Edema Control: Elevate legs to heart level for 30 mins daily and/or when sitting and Other Edema Control Order/Instructions (Bassem bandages wrapped lightly)
--- NOTE | 2024-08-31 13:30 | PC.NURSE ---
patient refused nystatin. Patient is was sleeping and does not want to be bothered. Patient has not eaten lunch at this time either.
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
[2024-09-01] VITALS (9 sets, daily range): BP systolic 94–109; BP diastolic 56–66; PULSE 55–77; RESP 16–17; TEMP 36.6–36.9; O2SAT 93–99
[2024-09-01] MEDS: FUROsemide 10 mg/mL SDV 4mL 40 MG IVP ×2 (06:26→18:39)
[2024-09-01] MEDS: MEROPENEM 2,000 MG in sodium chloride 0.9% (plus) 50 ML 100 MG IV ×3 (09:29→23:22)
[2024-09-01] MEDS: nystatin 100,000 unit/mL UDC 5 mL 100000 UNIT PO ×3 (09:36→18:40)
--- NOTE | 2024-09-01 11:48 | PM.PN ---
Subjective Subjective: Patient evaluated at bedside on [facility] today. He is more awake and alert today. His Ordaz catheter has been removed. He is aware of when he needs to go, though it is frequent and he is frequently incontinent. Wound dressings were in intact with no drainage strikethrough noted. Padded heel protector noted to left foot. Vitals/I&O/Wt Last Vital Signs Temp 98.4 F 09/01/24 11:06 Pulse 63 09/01/24 11:06 Resp 17 09/01/24 11:06 BP 109/65 09/01/24 11:06 Pulse Ox 99 09/01/24 11:06 O2 Del Method Room Air 09/01/24 08:29 08/31/24 09/01/24 09/01/24 22:59 06:59 14:59 Intake Total 200 / 250 50 / 300 480 / 480 Output Total 1300 / 1800 Balance 200 / -250 -1250 / -1500 480 / 480 Weight last 48 hrs Weight 92.533 kg Weight 96.162 kg Physical Exam Const: COMMON NORMALS: no acute distress, average body habitus and patient oriented x3 EXAM LIMITATIONS: physical limitations GENERAL APPEARANCE: cooperative, well developed and ill appearing ORIENTATION/CONSCIOUSNESS: Yes awake, Yes oriented to person and Yes oriented to place HENMT: HEAD & SCALP: normal to inspection Eye: GENERAL EYE: appearance normal, both eyes and all related structures Neck/C-Spine: GENERAL: Yes normal visual inspection Chest: CHEST: Yes Symmetrical chest wall rise Resp: COMMON NORMALS: normal respiratory effort EFFORT & INSPECTION: Yes able to speak in complete sentences and Yes symmetric chest movement Cardio: COMMON NORMALS: regular rate RATE: regular rate Back/Pelvis: SACRUM: no ecchymosis, erythema, no swelling, tenderness and No sacral edema COCCYX: no swelling and Coccyx tenderness present OTHER: Excoriation noted to sacrum, 0.5x0.5x0.1cm small superficial ulceration noted to scrotum. [place] healthy wound base. No adherent slough. Extremity: GENERAL: Yes edema OTHER: Neuro: COMMON NORMALS: patient oriented x3 SENSORIUM/ORIENTATION: Yes oriented to person, Yes oriented to place and Yes other (drowsy, slightly confused) Psych: COMMON NORMALS: cooperative and speech normal SPEECH: Yes normal speech Skin: WOUNDS: Yes wounds noted (See wound assessment) Data 08/28/24 04:22 07/09/25 04:17 Micro: Microbiology 08/26/24 08:32 Blood Culture - Final Blood NO GROWTH AFTER 5 DAYS A&P Assessment and plan 1. Venous stasis ulcers of both lower extremities: 2. Type 2 diabetes mellitus with other skin ulcer: 3. Diabetic foot ulcers: Plan: Examination was again difficult and a lengthy process due to patient's physical deconditioning and inability to hold his legs up and bend at the knee. Remains without signs or symptoms of active infection in any open wound. All wounds continue to slowly improve. Less exudate is noted on evaluation today. Will continue recommending silvercel to wounds daily and ABD pads for moisture control. Will continue bassem wraps. Edema is under better control with use of Bassem wrap's. He has been compliant with these. Upon arrival today, his legs were noted to be hanging off the bed. Frequent education regarding leg elevation will be beneficial. Padded heel protector should be on left foot at all times to prevent further pressure and decline of the left calcaneal wound. Excoriation to the sacrum appears slightly improved today. Open ulceration to scrotum appears stable. Nursing staff have been utilizing Triad with each brief change. With episodes of frequent incontinence, these areas are at risk for decline. Nursing staff will have to be diligent and check him frequently for episodes of incontinence both bowel and urine. Will continue to recommend Triad to these areas with each brief change and at least twice daily. Thorough cleaning should be performed between applications. He should be turned and repositioned frequently, at least every 2 hours. Given his inabilities to perform his own wound care, and reports that he may not have a reliable caregiver in his home, he would be best served in a [facility] facility upon discharge. He will require ongoing outpatient wound care once discharged. He would benefit from further venous evaluation in the outpatient setting given the chronic venous changes noted to his lower extremities including swelling, open ulcerations, and substantial hemosiderin staining. Wound care will sign off for now. Any further recommendations should be guided by hospitalist service. PDMP PDMP Reviewed: Not Reviewed Attestations Medical Necessity Statement*: Ongoing wound care Time Spent in Patient Care: Greater than 35 minutes (>than 50% of time spent in counselling and/or direct pt care on unit). Coding Level of Care Code Acute Code for g Fwd Diagnoses Venous stasis ulcers of both lower extremities I83.019; I83.029; L97.919; L97.929 Type 2 diabetes mellitus with other skin ulcer E11.622; L98.499 Diabetic foot ulcers E11.621; L97.509 Wound Orders All Wounds: All wounds Dressing change frequency: Daily and Other (As needed if soiled or dislodged) Wound Cleansing: Saline Primary Wound Care Dressing: Silvercel Secondary Wound Care Dressing: ABD pad, Soft form stretch gauze 4 inch Edema Control: Elevate legs to heart level for 30 mins daily and/or when sitting and Other Edema Control Order/Instructions (Bassem bandages wrapped lightly)
--- NOTE | 2024-09-01 19:12 | P.PN_ITS ---
Subjective 2 Subjective: 74-year-old male Ordaz removed yesterday has been voiding freely and incontinent. He tells me that at [facility] he was training to control his urine and was able to void 300 but retained 300 but eventually they put a Ordaz in botched all the training that he had done. Patient states he is being kicked out of the hospital and told that he will need $2000 co-pay for placement He says he is in favor wearing a diaper for his rest of his life if needed and avoiding the catheter to avoid infection He says he is awaiting lidocaine for his aphthous ulcer. Nurse Jordyn tells me that he kicked her out of the room when she went to bring him medicine because he was working on financial matters. Medications: Reviewed: Yes Vitals/I&O/Wt Last Vital Signs Temp 97.9 F 09/01/24 16:00 Pulse 77 09/01/24 16:00 Resp 17 09/01/24 16:00 BP 106/61 09/01/24 16:00 Pulse Ox 93 09/01/24 16:00 O2 Del Method Room Air 09/01/24 16:00 09/01/24 09/01/24 09/01/24 06:59 14:59 22:59 Intake Total 50 / 300 530 / 530 Output Total 1300 / 1800 Balance -1250 / -1500 530 / 530 Weight last 48 hrs Weight 92.533 kg Weight 96.162 kg Physical Exam 2 Narrative: General well-developed well-nourished male in no acute cardiopulmonary distress CV regular rate and rhythm Lungs crackles in the bases mild Back no flank tenderness Urinary Catheter Management: Ordaz: Cath Placed During This Visit: yes, but has since been removed by the nurse Reason for Continuing Indwelling Catheter: Decision to DC Catheter Urinary Catheter Date of Insertion: 08/24/24 Urinary Catheter Time of Insertion: 12:00 Date Urinary Catheter Removed: 09/01/24 Time Urinary Catheter Discontinued: 00:15 Data 08/28/24 04:22 08/31/24 04:17 A&P Assessment and plan 1. Acute on chronic systolic congestive heart failure: Acute on chronic HFrEF ? LVEF 25% with severe global hypokinesis and grade 2 diastolic dysfunction ? BNP elevated, noted to have diffuse anasarca and right pleural effusion on imaging ? Switched from Lasix drip to Lasix 40 mg bid IV, has had excellent response to diuresis ? Continue metoprolol ? Telemetry monitoring ? Strict I's and O's and daily weights, daily fluid restriction 1800 ? Cardiology following and input is appreciated Add spironolactone 25 mg twice a day and magnesium 400 mg daily. Weight down to 92.5 kg diuresed from 101 kg on admission 2. Acute UTI: Acute complicated UTI - Ucx: ESBL E coli ? Ordaz catheter placed in the ED for urinary retention ? No urinary obstruction noted on CT ? 2 out of 2 blood cultures from 08/24 grew ESBL E. coli, likely seeded from urine ? Surveillance blood culture from 08/26 no growth to date ? Continue meropenem. Dr. Carlisle from infectious disease recommends 10 to 14 days IV treatment with ertapenem. Other option would be for Bactrim. Doxycycline not adequate coverage for kidneys Repeat urine today Ordaz has been out since last night anticipate ertapenem IV to complete 10 to 14 days of treatment 3. Diabetic foot ulcers: Diabetic foot ulcers both feet Podiatry consulted and did not think that his wounds were acutely infected Wound care following Patient has legs elevated currently which is an improvement from every other time I have seen him 4. Venous stasis ulcers of both lower extremities: May some degree of superimposed cellulitis Fever and increased purulence and erythema yesterday Stopped vancomycin continue meropenem Continue wound care per wound care recommendations Venous Dopplers are negative for DVT Patient is minimally compliant with leg elevation 5. Type 2 diabetes mellitus: Continue Jardiance Sliding scale insulin Follow-up A1c was 6.3 6. BPH (benign prostatic hyperplasia): Tamsulosin 7. Atrial fibrillation with RVR: Chronic atrial fibrillation In a RVR 08/25 but now rate controlled on oral metoprolol s/p Watchman procedure, on aspirin Telemetry monitoring. Plan: Disposition: Wanteds to go home following this discharge. But has no help at home so he is grudgingly agreed to go to [facility] facility. He needs daily assistance and also IV antibiotic GI prophylaxis: Protonix VTE prophylaxis: Lovenox Encourage leg elevation but patient is resistant. Leg Dopplers are negative for DVT patient declines compression dressing PDMP PDMP Reviewed: Not Reviewed Attestations 2 Medical Necessity Statement*: Patient will be in the hospital for additional midnight anticipate discharge tomorrow to [facility] facility Coding Level of Care Code 45917 Diagnoses Acute on chronic systolic congestive heart failure I50.23 Heart failure chronicity: acute on chronic Heart failure type: systolic Acute UTI N39.0 Diabetic foot ulcers E11.621; L97.509 Diabetes mellitus type: type 2 Laterality: unspecified laterality Venous stasis ulcers of both lower extremities I83.019; I83.029; L97.919; L97.929 Type 2 diabetes mellitus E11.9 BPH (benign prostatic hyperplasia) N40.0 Atrial fibrillation with RVR I48.91 Time Spent (min) 25
--- NOTE | 2024-09-01 21:29 | PC.NURSE ---
patient refused all PM meds stated he is better and does not need them
[2024-09-02] VITALS (8 sets, daily range): BP systolic 93–100; BP diastolic 55–65; PULSE 54–82; RESP 16–19; TEMP 36.4–36.7; O2SAT 73–97
[2024-09-02] MEDS: FUROsemide 10 mg/mL SDV 4mL 40 MG IVP (05:56)
[2024-09-02] MEDS: MEROPENEM 2,000 MG in sodium chloride 0.9% (plus) 50 ML 100 MG IV (07:35)
[2024-09-02] MEDS: nystatin 100,000 unit/mL UDC 5 mL 100000 UNIT PO ×3 (08:49→17:12)
--- NOTE | 2024-09-02 11:27 | PC.SOCIAL ---
IMM updated IMM dated and initialed, copy given to patient and copy placed in chart.
[2024-09-02 14:05] LABS: Glucose Urine UA Negative (Normal); Nitrate Urine Negative (Negative); Specific Gravity, Urine 1.008 (1.005-1.030)
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
--- NOTE | 2024-09-02 21:09 | PC.NURSE ---
Discharge Patient given discharge instructions by this nurse. Discharge instructions reviewed in full with patient and patient's friend, Leopoldo, at bedside. Patient and Leopoldo verbalize understanding of instructions given. Patient home medications returned from [facility], form signed. All patient belongings and wound care supplies packed at bedside taken to personal vehicle by Leopoldo. Patient assisted via wheelchair by LAMAR Sharp to personal vehicle with Leopoldo.
== END 2024-09-02 21:11 | disposition home or self-care (01) | DRG 871 ==
LOC: ER 14:43 → ICU 15:11 → MEDSURG 08-28 15:13
PROVIDERS: Internal Medicine; Admitting Provider Student in an Organized Health Care Education/Training Program; Emergency Provider Emergency Medicine; Visit Provider Internal Medicine
DX: A41.9 Sepsis, unspecified organism (principal); I50.23 Acute on chronic systolic (congestive) heart failure; R65.21 Severe sepsis with septic shock; R57.0 Cardiogenic shock; N39.0 Urinary tract infection, site not specified; Z16.12 Extended spectrum beta lactamase (ESBL) resistance; N17.9 Acute kidney failure, unspecified; L03.116 Cellulitis of left lower limb; L03.115 Cellulitis of right lower limb; I42.8 Other cardiomyopathies; I11.0 Hypertensive heart disease with heart failure; I48.91 Unspecified atrial fibrillation; B96.20 Unspecified Escherichia coli [E. coli] as the cause of diseases classified elsewhere; N40.1 Benign prostatic hyperplasia with lower urinary tract symptoms; R33.8 Other retention of urine; E11.621 Type 2 diabetes mellitus with foot ulcer; L97.511 Non-pressure chronic ulcer of other part of right foot limited to breakdown of skin; L97.529 Non-pressure chronic ulcer of other part of left foot with unspecified severity; I87.8 Other specified disorders of veins; K21.9 Gastro-esophageal reflux disease without esophagitis; Z79.82 Long term (current) use of aspirin; Z79.891 Long term (current) use of opiate analgesic; I45.10 Unspecified right bundle-branch block; R31.0 Gross hematuria; I07.1 Rheumatic tricuspid insufficiency; I27.20 Pulmonary hypertension, unspecified; E87.6 Hypokalemia
CPT/HCPCS: 36415; 36416; 71045; 71250; 73630; 74176; 80048; 80053; 80069; 81001; 82962; 83036; 83605; 83735; 83880; 84100; 84439; 84443; 84484; 85025; 85610; 85651; 85730; 86140; 87040; 87077; 87086; 87150; 87186; 87205; 87493; 93005; 93306; 93970; 94664; 96365; 96367; 96372; 96374; 96375; 96376; 97110; 97162; 97167; 97530; 97535; 99285; 99291; 99292; J0131; J0696; J1650; J1815; J1938; J2020; J2185; J2270; J3480; J3490; J7040; J9999; P9046